=== PATIENT | female | born 1935 | race Caucasian/White ===

== ENCOUNTER 2017-04-24 14:04 | Inpatient (IN) ==
[2017-04-24] MEDS ORDERED: Temazepam 15 MG CAPSULE PO PRN (16:01)
[2017-04-24] MEDS: Pregabalin 50 MG CAPSULE PO SCH (21:14)
[2017-04-24] MEDS: *HR* LORazepam 0.5 MG TABLET PO PRN (21:14)
[2017-04-24] MEDS: *HR* OxyCODONE/APAP 5/325 TABLET PO PRN (21:15)
--- NOTE | 2017-04-24 22:20 | Internal Med History&Physical ---
Date of Encounter: 04/25/17 Time of Encounter: 22:20 Assessment and Plan (1) Left humeral fracture Current visit: Yes Status: Acute History of spiral fracture of distal third left humerus and subsequent ORIF per Dr. Barrett. She is here for therapies to regain her ADLs to hopefully return home. PT, OT, recreational therapy will all be evaluating the patient. Her incision appears to be appropriate. She is in a brace to limit her range of motion of the left upper extremity. Pain is under adequate control. She does have considerable swelling of the left hand but no skin breakdown and not unexpected at this point. Neurovascular intact. We will continue with Percocet every 4 hours when necessary pain Qualifiers: Encounter type: initial encounter Humerus Location: shaft Fracture type: closed Fracture morphology: unspecified fracture morphology Qualified Code(s ): S42.302A - Unspecified fracture of shaft of humerus, left arm, initial encounter for closed fracture (2) History of pelvic fracture Current visit: Yes Status: Chronic Her x-rays revealed healing right superior and inferior pubic ramus fractures. This is giving her considerable pain. She is not sure exactly when she sustained this injury and she is followed about 4 times in the past month. Currently it is giving her lots of pain when trying to stand and do transfers. She will be evaluated by the therapies (3) Idiopathic peripheral neuropathy Current visit: Yes Status: Chronic She has a chronic history of idiopathic peripheral neuropathy. She has seen neurologist Dr. Quispe and she is currently taking Lyrica 100 mg twice a day. She states this does not work for a well. She does relate however that when she was taking amitriptyline for the urinary symptoms this seemed to also help her peripheral neuropathy. That medication however is being held because of her history of four falling episodes since starting the medication. (4) Urinary frequency Current visit: Yes Status: Chronic Chronically has urinary frequency. She has been on Vesicare and Mirabegron not much improvement. Dr. Martinez added amitriptyline to see if this would help, she did not think it really made much difference. We will hold that medication for fear it may have contributed to her falling episodes since starting the medication. (5) Fall with significant injury Current visit: Yes Status: Acute She has had for falling episodes in the past month or so she has injured her ribs, her back, and x-rays reveal healing right pelvic fractures. At about the same time as starting the falling episodes she was started on amitriptyline for her bladder symptoms. That medication has been stopped in case it has contributed to that problem. She will undergo extensive therapies to help avoid recurring falls Qualifiers: Encounter type: initial encounter Qualified Code(s): W19.XXXA - Unspecified fall, initial encounter (6) Back pain Current visit: Yes Status: Acute She is having considerable low back pain and sacral pain. She had negative x- rays for fracture. This likely is contributed to her falling episodes. She has pain medication ordered and will have therapies. Qualifiers: Back pain location: low back pain Chronicity: acute Back pain laterality : midline Sciatica presence: without sciatica Qualified Code(s): M54.5 - Low back pain (7) HTN (hypertension) Current visit: Yes Status: Chronic Long-standing history of hypertension. Her pressures been under good control. We will continue her current medications. Qualifiers: Hypertension type: essential hypertension Qualified Code(s): I10 - Essential (primary) hypertension (8) Acute blood loss as cause of postoperative anemia Current visit: Yes Status: Acute Mild anemia as expected postoperatively. We will recheck her count soon. (9) DVT prophylaxis Current visit: Yes Status: Acute DVT prophylaxis with Lovenox will be continued. Internal Medicine - H&P: HPI Chief complaint: I am here for therapy following my left arm fracture Admitted From: Hospital to Hospital Transfer Plans for Post Hospital Care: Home History of present illness: Ms. Khan is a 81 year old female with known chronic history of hypertension, COPD, idiopathic peripheral neuropathy of lower extremities, urinary frequency who recently fell and sustained a spiral type fracture of the lower one third left humerus. She was transferred to our facility for rehabilitation from [facility] following ORIF of the fracture. States she was here usual self until she fell on 04/19/17 as she was attempting to get back into the car after she was at a DME store picking up new prescription shoes. She does not know why she fell. She had no loss of consciousness. No unilateral focal deficit area when she fell she hurt all over including her left arm and right lower extremity and back. She was taken by squad to [facility] was found to have a spiral type fracture of the distal one third of the left humerus that required ORIF by Dr. Barrett on the following day. During the multiple x-rays that were obtained they found a subacute right superior and inferior pubic ramus fracture that was healing and had callus formation. She relates that she has fallen 4 times in the past month or so sustaining back pain, rib pain, now hip pain in addition to the left humerus fracture. She notes she was started on amitriptyline at about the same time because of her ongoing bladder problems. She is having ongoing urinary frequency and is felt that that may help those symptoms. She also has peripheral neuropathy of lower extremities and it was helpful for the neuropathy. She was transferred to the rehabilitation unit for therapies so she can regain her ADLs prior to going home. She lives in a 1 floor home. Currently she states she cannot walk, she does not think she can stand. Her left upper extremity is in an immobilizer to keep her arm and elbow in place. She thinks her pain is been under good control. She states a lot of her pain is in the low back and sacral area. She had x-rays in that area negative for fracture. She states she has not been able to do more than stand with 2 person assistance to pivot and sit on a bedside commode. She has not had any syncopal symptoms, chest pain or palpitations, dyspnea, acute GI symptoms. She denies any unilateral symptoms suggesting CVA. Past Med Surg Social Fam HX - Past Medical History Medical history: COPD (Prior history of tobacco use for many years), GERD, hypertension, other (Chronic idiopathic peripheral neuropathy of both lower extremities. Urinary frequency) Psychiatric history: anxiety (She uses Ativan when necessary for anxiety.) - Past Surgical History Surgical History: orthopedic, other (Left humerus fracture with ORIF and plate fixation) - Social History Smoking Status: Former smoker Smokeless Tobacco Status: No Alcohol use: none Drug use: none Current living situation: Home Activity Level: Independent ambulation Recent Out of Country Travel Within the Last 8 Weeks: No Exposure or Possible Exposure to Illness During Travel: No Additional social history: He lives in a one-story home. She typically uses a walker for ambulation to help stability - Family History Mother Living Status: Cause of : Hemorrhagic stroke at age 57 Hx Family Cardiac Disorders: Yes (Hypertension) Hx Family Neurologic Disorders: Yes (External could age 57) Father Family Member Ethnicity: Non- Living Status: Age at : 72 Cause of : surgical complications Hx Family GI Disorders: Yes (Problems, bleeding ulcer) Brother Hx Family Cancer: Yes (One brother with esophageal cancer, brother with prostate cancer) Internal Medicine - H&P: Meds Loratadine [Allergy Relief] 10 mg PO DAILY 04/21/17 [History] Mirabegron [Myrbetriq] 50 mg PO DAILY 04/21/17 [History] Omeprazole [PriLOSEC] 20 mg PO DAILY 04/21/17 [History] Polyethylene Glycol 3350 [MiraLAX] 17 gm PO DAILY 04/21/17 [History] Potassium Chloride [Klor-Con 10] 10 meq PO DAILY 04/21/17 [History] Pravastatin Sodium [Pravachol] 40 mg PO QPM 04/21/17 [History] Pregabalin [Lyrica] 100 mg PO BID 04/21/17 [History] Solifenacin Succinate [Vesicare] 5 mg PO DAILY 04/21/17 [History] Docusate [Colace] 100 mg PO BID capsule 04/22/17 [Rx] LORazepam [Ativan] 0.5 mg PO DAILY PRN #10 tablet 04/22/17 [Rx] Oxycodone HCl/Acetaminophen [Percocet 5-325 mg Tablet] 1 each PO Q4HR PRN #20 tablet 04/22/17 [Rx] Temazepam [Restoril] 15 mg PO HS PRN capsule 04/22/17 [Rx] Enoxaparin [Lovenox] 40 mg SQ DAILY #7 syr 04/24/17 [Rx] 3 Allergy/AdvReac Type Severity Reaction Status Date / Time No Known Allergies Allergy Verified 04/21/17 11:15 - Constitutional Constitutional: no falls (She has fallen 4 times. She thinks related to starting amitriptyline.) - EENT Eyes: no blurry vision, no loss of vision Ears: no ear discharge, no ear pain Nose, mouth and throat: dry mouth, no sore throat - Cardiovascular Cardiovascular ROS IM: no chest pain, no dyspnea, no dyspnea on exertion, no irregular heart rhythm - Respiratory Respiratory: no dyspnea, no hemoptysis, no dyspnea on exertion, no chest congestion - Gastrointestinal Gastrointestinal: constipation (She has not had a bowel movement since surgery) , no abdominal pain, no diarrhea, no melena, no vomiting - Genitourinary Genitourinary: no urinary incontinence, no urinary urgency Menstruation: post menopausal - Musculoskeletal Musculoskeletal ROS IM: back pain (She complains of tailbone pain.), muscle weakness (She does not think she can walk because of weakness and instability), other (pain in left upper extremity status post ORIF humeral fracture) - Integumentary Integumentary IM: no erythema, no rash - Neurological Neurological ROS: frequent falls (She apparently has had 4 falls in the past few weeks.), other (She has a history of chronic neuropathy of lower extremities.) - Constitutional Vitals: Temp Pulse Resp BP Pulse Ox 97.6 F 96 18 149/74 95 04/24/17 19:00 04/24/17 19:00 04/24/17 19:00 04/24/17 19:00 04/24/17 19:00 General appearance: Present: A&O X 3, no acute distress, obese, answers questions appropriately - Head Head exam: Present: atraumatic, normal inspection, normocephalic - Eye Eye exam: Present: EOMI, PERRL - ENT ENT exam: Present: mucous membranes dry, TM's normal bilaterally - Neck Neck exam general surgery: Absent: lymphadenopathy, tenderness, thyromegaly - Respiratory Respiratory exam: Present: decreased breath sounds (Mildly diminished breath sounds but clear. This is her baseline.), CTAB. Absent: rhonchi, wheezes, tachypnea - Cardiovascular Cardiovascular exam: Present: RRR, +S1, +S2. Absent: systolic murmur - GI/Abdominal GI/Abdominal exam: Present: no peritoneal signs. Absent: mass, tenderness - Extremities Exam Additional comments: Left upper extremity is wrapped in cast padding and Frantz wraps. She has swelling of the dorsum of the left hand. She does have full function. Neurovascular intact. Cast padding was removed and shows incision to be clean and dry. Honeycomb dressing intact. Very tiny area of dried blood. No significant redness. No signs of infection. Lower extremities show pitting edema of both feet. Good dorsalis pedis pulses. No skin breakdown. - Neurological Exam Neurological exam: Present: oriented X3 Additional comments: I did not attempt to get her out of bed to check her gait or balance. She moves all extremities appropriately well in bed except for left arm in abductor device - Skin Additional comments: Incision looks clean and dry. Clinical and OpSite dressing intact. I see no skin breakdown elsewhere. Internal Med - H&P Results - Labs Labs: As were reviewed from her hospitalization at [facility] taken earlier today. Hemoglobin 8.6. Electrolytes and renal function unremarkable.
[2017-04-25] MEDS: *HR* OxyCODONE/APAP 5/325 TABLET PO PRN ×3 (06:23→19:15)
[2017-04-25] MEDS ORDERED: Loratadine 10 MG TABLET PO SCH (09:00)
[2017-04-25] MEDS: Pregabalin 50 MG CAPSULE PO SCH ×2 (09:26→21:00)
[2017-04-25] MEDS: *HR* Enoxaparin 40 MG/0.4 ML SYRINGE SQ SCH (09:28)
--- NOTE | 2017-04-25 19:03 | Internal Med Progress Note ---
Date of Encounter: 04/25/17 Time of Encounter: 18:46 - Assessment and plan (1) Left humeral fracture Current Visit: Yes Status: Acute Assessment and plan: History of left humerus fracture and ORIF. Pain is under good control. She is getting PT and OT therapies. She states she feels fairly comfortable. Qualifiers: Encounter type: initial encounter Humerus Location: shaft Fracture type: closed Fracture morphology: unspecified fracture morphology Qualified Code(s ): S42.302A - Unspecified fracture of shaft of humerus, left arm, initial encounter for closed fracture (2) History of pelvic fracture Current Visit: Yes Status: Chronic Assessment and plan: History of healing right pelvic fracture with callus formation. However she does have lots of hip and pelvic pain particularly on the right side when trying to ambulate lifting her left leg. Continue with therapies and pain medication (3) Back pain Current Visit: Yes Status: Acute Assessment and plan: Complaints of low back pain following the fall. No obvious fractures. Continue the therapies Qualifiers: Back pain location: low back pain Chronicity: acute Back pain laterality : midline Sciatica presence: without sciatica Qualified Code(s): M54.5 - Low back pain (4) Fall with significant injury Current Visit: Yes Status: Acute Assessment and plan: Recurring falling episodes in the past month. Therapy to hopefully regain some strength. Amitriptyline will be held. No obvious head trauma or CVA signs or symptoms. Continue to follow. Qualifiers: Encounter type: initial encounter Qualified Code(s): W19.XXXA - Unspecified fall, initial encounter (5) HTN (hypertension) Current Visit: Yes Status: Chronic Assessment and plan: hypertension under good control. Qualifiers: Hypertension type: essential hypertension Qualified Code(s): I10 - Essential (primary) hypertension (6) Idiopathic peripheral neuropathy Current Visit: Yes Status: Chronic Assessment and plan: Chronic peripheral neuropathy of lower extremities. She states that the Lyrica is only partially successful in controlling the pain. When she was on amitriptyline she thinks things were better, but it has been held because of possible association with her falling episodes. (7) Acute blood loss as cause of postoperative anemia Current Visit: Yes Status: Acute Assessment and plan: Appropriate amount of blood loss and anemia postoperatively. No obvious active bleeding currently. We will recheck her hemoglobin in the morning. (8) DVT prophylaxis Current Visit: Yes Status: Acute Assessment and plan: Continue with the Lovenox - Subjective Interval history: I saw her today after she had therapy. It was reported she was able to stand with 2 person assistance shuffle her feet slightly so she could sit in a chair or bedside commode. She is surprised that she was even able to stand. She states her right hip hurts when she lifts her left leg to walk. She thinks her pain medication, had only a couple Percocet today, is keeping things under adequate control. Tonight she is ready for another Percocet that she has pain at the top of the shoulder. She denies any respiratory symptoms. She denies any cardiac symptoms. She has not had a bowel movement since her surgery. Her left hand is still very puffy/ edematous. She does have function of the left hand. Today it was noted she had a triangle shaped reddened area on the palm side of her base of her thumb. No history of trauma for this. - Constitutional Vitals: Temp Pulse Resp BP Pulse Ox 97.9 F 96 16 141/86 94 04/25/17 07:39 04/25/17 07:39 04/25/17 07:39 04/25/17 07:39 04/25/17 11:20 General appearance: Present: A&O X 3, no acute distress (While seated in a wheelchair. Her arm is immobilized.), obese, answers questions appropriately - Respiratory Respiratory exam: Present: decreased breath sounds, CTAB - Cardiovascular Cardiovascular exam: Present: +S1, +S2. Absent: systolic murmur - Extremities Exam Additional comments: Upper extremity is in the immobilizer. Cast padding and Frantz wrap intact. I did not reevaluate the incision tonight. She does have significant swelling of the left hand, particularly the dorsal area. No skin breakdown but has a triangle shaped almost blood blister finding on the pad side of her proximal thumb. She is able to move her fingers and hand appropriately. Mild edema of the dorsum of both feet. Not particularly pitting into the ankles. Consult Discharge Plan - Plan Referrals: Jamin Villa MD [Primary Care Provider] -
[2017-04-25] MEDS: *HR* LORazepam 0.5 MG TABLET PO PRN (21:01)
[2017-04-26] MEDS: *HR* OxyCODONE/APAP 5/325 TABLET PO PRN ×4 (07:12→22:27)
--- NOTE | 2017-04-26 07:55 | Internal Med Progress Note ---
Date of Encounter: 04/26/17 Time of Encounter: 07:55 - Assessment and plan (1) Left humeral fracture Current Visit: Yes Status: Acute Assessment and plan: Status post left humerus fracture and ORIF. Her pain control is reasonably good. She is still very much handicapped because she cannot use her left upper extremity and she has pain in the right buttock and hip region which limits her walking ability. Pain medication appears to be adequate. Continue therapies. The edema in the left hand will likely go away, we will follow presently. Currently we do not have lymphedema therapist available Qualifiers: Encounter type: initial encounter Humerus Location: shaft Fracture type: closed Fracture morphology: unspecified fracture morphology Qualified Code(s ): S42.302A - Unspecified fracture of shaft of humerus, left arm, initial encounter for closed fracture (2) History of pelvic fracture Current Visit: Yes Status: Chronic Assessment and plan: Old pelvic fracture with callus formation in the superior and inferior ramus on the right side. No other obvious fracture noted. However she does have right buttock pain when trying to ambulate and lift her left lower extremity. A need to consider CT scan of the pelvis. Will follow currently. (3) Back pain Current Visit: Yes Status: Acute Assessment and plan: Not having so much back pain, mainly in the right buttock and hip region. See note above. Qualifiers: Back pain location: low back pain Chronicity: acute Back pain laterality : midline Sciatica presence: without sciatica Qualified Code(s): M54.5 - Low back pain (4) Fall with significant injury Current Visit: Yes Status: Acute Qualifiers: Encounter type: initial encounter Qualified Code(s): W19.XXXA - Unspecified fall, initial encounter (5) HTN (hypertension) Current Visit: Yes Status: Chronic Qualifiers: Hypertension type: essential hypertension Qualified Code(s): I10 - Essential (primary) hypertension (6) Idiopathic peripheral neuropathy Current Visit: Yes Status: Chronic (7) Acute blood loss as cause of postoperative anemia Current Visit: Yes Status: Acute Assessment and plan: Follow-up hemoglobin is stable. (8) DVT prophylaxis Current Visit: Yes Status: Acute - Subjective Interval history: I saw her in the tunnel mucker. She was at the breakfast table in a wheelchair. She said she slept well, she thinks she may have had a sleeping pill. She denies any cardiac or respiratory symptoms. She thinks the pain medication is adequate. - Constitutional Vitals: Temp Pulse Resp BP Pulse Ox 97.9 F 82 16 127/80 93 04/26/17 04:00 04/26/17 04:00 04/26/17 04:00 04/26/17 04:00 04/26/17 04:00 General appearance: Present: A&O X 3, no acute distress (While seated in a wheelchair. Her arm is immobilized.), answers questions appropriately - Respiratory Respiratory exam: Present: decreased breath sounds, CTAB - Cardiovascular Cardiovascular exam: Present: RRR, +S1, +S2. Absent: systolic murmur - Extremities Exam Additional comments: Left upper extremity is in the immobilizer. Her arm is wrapped. Her dorsum of the left hand is still very puffy but function is intact and it is warm. She has a triangle shaped burn or blister formation on the palmar surface of the proximal thumb without change. - Incison Comments: The incision site is clean and dry. The honeycomb-type dressing with op site is intact. There are a few dried blood areas which are stable. No skin breakdown noted in the arm. Internal Medicine: Result - Labs CBC & Chem 7: 04/26/17 04:30 Labs: Short CBC 04/26/17 Range/Units 04:30 Hgb 8.7 L (11.5-15.4) g/dL Follow-up hemoglobin has been reviewed at 8.7. Hemoglobin is stable postoperatively now. Consult Discharge Plan - Plan Referrals: Jamin Villa MD [Primary Care Provider] -
[2017-04-26] MEDS: *HR* Enoxaparin 40 MG/0.4 ML SYRINGE SQ SCH (08:54)
[2017-04-26] MEDS: Pregabalin 50 MG CAPSULE PO SCH ×2 (08:55→22:00)
[2017-04-27] MEDS: *HR* OxyCODONE/APAP 5/325 TABLET PO PRN ×5 (02:37→23:54)
[2017-04-27] MEDS: *HR* Enoxaparin 40 MG/0.4 ML SYRINGE SQ SCH (07:43)
[2017-04-27] MEDS: Pregabalin 50 MG CAPSULE PO SCH ×2 (07:44→23:53)
--- NOTE | 2017-04-27 08:35 | Internal Med Progress Note ---
Date of Encounter: 04/27/17 Time of Encounter: 08:30 - Assessment and plan (1) Acute blood loss as cause of postoperative anemia Current Visit: Yes Status: Acute Assessment and plan: Hgb stable as of yesterday. I do not anticipate any further drop. (2) Left humeral fracture Current Visit: Yes Status: Acute Assessment and plan: Pain well controlled. SHe reports she i unable to ambulate at this point, which she coud do before admission. Continue therapy. Her will be her primary comb winder at home. Qualifiers: Encounter type: initial encounter Humerus Location: shaft Fracture type: closed Fracture morphology: unspecified fracture morphology Qualified Code(s ): S42.302A - Unspecified fracture of shaft of humerus, left arm, initial encounter for closed fracture (3) HTN (hypertension) Current Visit: Yes Status: Chronic Assessment and plan: A little above goal, will follow. Qualifiers: Hypertension type: essential hypertension Qualified Code(s): I10 - Essential (primary) hypertension (4) History of pelvic fracture Current Visit: Yes Status: Chronic Assessment and plan: Consider CT to rule out occult fracture. - Time Spent With Patient 25 - 35 minutes - Subjective Interval history: patient tells me that overall she feels well. Has some pain in R hip as before, she states the pain medication is effective but she sleeps well at night. She says that she is unable to stand and walk but that it is not because of pain, she isn't sure why her legs feel weak. Denies chest pain or upper extremity pain. - Constitutional Vitals: Afebrile, O2 sats fine, BP 146-74/156/77. Temp Pulse Resp BP Pulse Ox 97.9 F 86 16 156/77 94 04/27/17 07:23 04/27/17 07:23 04/27/17 07:23 04/27/17 07:23 04/27/17 07:23 General appearance: Present: A&O X 3, pleasant, no acute distress (While seated in a wheelchair. Her left arm is immobilized.She smiles and does not appear to be experiencing pain. ), answers questions appropriately - Respiratory Respiratory exam: Present: CTAB. Absent: accessory muscle use, rales, respiratory distress, rhonchi, wheezes - Cardiovascular Cardiovascular exam: Present: RRR, +S1, +S2. Absent: diastolic murmur, gallop, rubs, systolic murmur - Extremities Exam Extremities exam: Present: warm. Absent: calf tenderness, cyanotic, pedal edema Additional comments: Edema of L hand, pitting, nontender. Moves fingers. Blister on L thumb, fluid in it seems to have resolved, skin is still intact. Legs have benita firm nonpitting edema, no redness, tenderness or skin breakdown. Able to move both legs dorsi and plantar flexion at ankles, able to elevate both legs. Internal Medicine: Result - Labs CBC & Chem 7: 04/26/17 04:30 Consult Discharge Plan - Plan Referrals: Jamin Villa MD [Primary Care Provider] -
[2017-04-28] MEDS: *HR* OxyCODONE/APAP 5/325 TABLET PO PRN ×3 (03:42→21:09)
[2017-04-28] MEDS: *HR* Enoxaparin 40 MG/0.4 ML SYRINGE SQ SCH (08:35)
[2017-04-28] MEDS: Pregabalin 50 MG CAPSULE PO SCH ×2 (08:35→21:09)
[2017-04-28] MEDS: Furosemide 40 MG TABLET PO SCH ×2 (10:30→16:28)
--- NOTE | 2017-04-28 16:42 | Internal Med Progress Note ---
Date of Encounter: 04/28/17 Time of Encounter: 06:55 - Assessment and plan (1) Acute blood loss as cause of postoperative anemia Current Visit: Yes Status: Acute Assessment and plan: No evidence for further bleeding. I don't think we have probably repeat this (2) Left humeral fracture Current Visit: Yes Status: Acute Assessment and plan: Upper extremity edema is gone down. Her pain is nicely controlled. Qualifiers: Encounter type: initial encounter Humerus Location: shaft Fracture type: closed Fracture morphology: unspecified fracture morphology Qualified Code(s ): S42.302A - Unspecified fracture of shaft of humerus, left arm, initial encounter for closed fracture (3) HTN (hypertension) Current Visit: Yes Status: Chronic Assessment and plan: At goal. Qualifiers: Hypertension type: essential hypertension Qualified Code(s): I10 - Essential (primary) hypertension (4) History of pelvic fracture Current Visit: Yes Status: Chronic Assessment and plan: On exam doesn't confirm any acute neurological deficit to explain why she's having difficulty ambulating. She could have a spinal cord lesion but again exam does not suggest that. Certainly she has a lot of fluid in her likes this is not usually presents try some diuresis and see if that can decrease the water weight in her legs and improve her ability to walk. She did ask for her Ativan to be resumed once a day and we did that. She is really not having much pain in her hip by her report so don't think she needs it right now. Her plain films were normal. - Time Spent With Patient Greater than 35 minutes - Subjective Interval history: The patient denies pain in the left upper extremity. She denies shortness of breath, chest pain or abdominal pain. She does say she still has trouble moving her legs when she attempts to stand. She states she has chronic neuropathy but usually doesn't have this much trouble. She feels the legs are somewhat heavy she does have a lot of extra fluid here. She continues to have right lateral hip pain but she denies pain in her back. - Constitutional Vitals: Vital signs are unremarkable. O2 sats are on room air. Temp Pulse Resp BP Pulse Ox 97.8 F 75 16 135/76 93 04/28/17 08:00 04/28/17 08:00 04/28/17 08:00 04/28/17 08:00 04/28/17 08:00 General appearance: Present: A&O X 3, pleasant, no acute distress (While seated in a wheelchair. Her left arm is immobilized.She smiles and does not appear to be experiencing pain. ), answers questions appropriately - Respiratory Respiratory exam: Present: CTAB. Absent: accessory muscle use, rales, rhonchi, wheezes - Cardiovascular Cardiovascular exam: Present: RRR, +S1, +S2. Absent: diastolic murmur, gallop, rubs, systolic murmur - GI/Abdominal GI/Abdominal exam: Present: normal bowel sounds, soft, no peritoneal signs. Absent: distended, tenderness - Extremities Exam Extremities exam: Present: normal inspection (Reflexes are brisk and symmetrical in his. Sensation is intact throughout the lower extremities by her report. She has reasonably good strength to the dorsal plantar flexion. She can lift both legs up off the bed. She can flex and extend both knees and flex at the hips. There is no tenderness over the lateral hip or the back.), pedal edema (She has prominent bilateral rales lower extremity pitting edema. Edema on her distal left upper extremity is much improved from yesterday though not completely resolved.), warm, radial pulses palpable and symmetrical. Absent: calf tenderness, cyanotic Internal Medicine: Result - Labs CBC & Chem 7: 04/26/17 04:30 Consult Discharge Plan - Plan Referrals: Jamin Villa MD [Primary Care Provider] -
[2017-04-29] MEDS: *HR* OxyCODONE/APAP 5/325 TABLET PO PRN ×4 (01:17→18:10)
[2017-04-29] MEDS: *HR* Enoxaparin 40 MG/0.4 ML SYRINGE SQ SCH (09:18)
[2017-04-29] MEDS: Pregabalin 50 MG CAPSULE PO SCH ×2 (09:19→20:42)
--- NOTE | 2017-04-29 12:54 | Internal Med Progress Note ---
Date of Encounter: 04/29/17 Time of Encounter: 12:45 - Assessment and plan (1) Acute blood loss as cause of postoperative anemia Current Visit: Yes Status: Acute Assessment and plan: I will recheck her CBC tomorrow. (2) Left humeral fracture Current Visit: Yes Status: Acute Assessment and plan: Doing well postop. Her left hand swelling has resolved. Pain is well-controlled. Qualifiers: Encounter type: initial encounter Humerus Location: shaft Fracture type: closed Fracture morphology: unspecified fracture morphology Qualified Code(s ): S42.302A - Unspecified fracture of shaft of humerus, left arm, initial encounter for closed fracture (3) HTN (hypertension) Current Visit: Yes Status: Chronic Assessment and plan: Overall she's been at goal. We will check electrolytes tomorrow. Qualifiers: Hypertension type: essential hypertension Qualified Code(s): I10 - Essential (primary) hypertension (4) History of pelvic fracture Current Visit: Yes Status: Chronic Assessment and plan: She is having persistent pain and functional disability. I'll get a CT of her right hip. We'll do this tomorrow. - Time Spent With Patient Greater than 35 minutes - Subjective Interval history: She denies abdominal discomfort or chest pain. She is not sure if she has less fluid in her legs but says she does not want any further diuretic because it is inconvenient for her to urinate frequently. She denies left upper extremity pain states she's having the swelling is gone from her hand. She says that with walking she still has trouble bearing weight. She feels it's because her legs are weak but also acknowledges that she has pain in the right hip tries to do that. I looked at physical therapy notes from 2 days ago they seem to suggested that pain with weightbearing as more of a problem than weakness. She again tells me that she's had neuropathy in the past and that "I get like this sometimes". - Constitutional Vitals: She has been afebrile. Other vitals are noted. The O2 sat is a little surprising but she is completely comfortable on room air when I'm talking to her. Repeat O2 sat done just now by the nurse is 95% on room air. Temp Pulse Resp BP Pulse Ox 97.9 F 88 16 135/93 86 04/29/17 08:39 04/29/17 08:39 04/28/17 19:26 04/29/17 08:39 04/29/17 08:39 General appearance: Present: A&O X 3, pleasant, no acute distress (While seated in a wheelchair. Her left arm is immobilized.She smiles and does not appear to be experiencing pain. ), answers questions appropriately - Respiratory Respiratory exam: Present: CTAB. Absent: accessory muscle use, rales, rhonchi, wheezes - Cardiovascular Cardiovascular exam: Present: RRR, +S1, +S2. Absent: diastolic murmur, gallop, rubs, systolic murmur - GI/Abdominal GI/Abdominal exam: Present: normal bowel sounds, soft, no peritoneal signs. Absent: distended, tenderness - Extremities Exam Extremities exam: Present: pedal edema (She still has prominent pitting bilateral pretibial edema but no calf tenderness and medial edema seems improved from yesterday. She is good vascular supply distally in the left upper extremity and the swelling has resolved.), warm. Absent: calf tenderness, cyanotic - Neurological Exam Neurological exam: Present: alert, no focal deficits (She can demonstrates good strength at the ankles and knees. She appears in no discomfort at rest. Reflexes are normal in the lower extremities.), strengths equal and symetr throughout. Absent: pronater drift, facial droop, speech deficit Internal Medicine: Result - Labs CBC & Chem 7: 04/26/17 04:30 Consult Discharge Plan - Plan Referrals: Jamin Villa MD [Primary Care Provider] -
[2017-04-29 13:07] LABS: Bilirubin,Urine Negative (Negative); Blood,Urine Trace-intact (Negative); Clarity,Urine Cloudy (Clear); Color,Urine Yellow (Yellow); Glucose,Urine (UA) Normal (Normal); Ketones,Urine Negative (Negative); Leukocyte Esterase,Urine Moderate (Negative); Nitrite,Urine Positive (Negative); Protein,Urine Trace mg/dL (Neg-Trace); Urobilinogen,Urine Normal (Normal)
[2017-04-29 13:16] LABS: Bacteria,Urine Many per hpf (None-Few); RBC,Urine 0-3 per hpf (0-3); Squamous Epithelial Cell,Urine Many per lpf (None-Few); WBC,Urine 50-100 per hpf (0-3)
[2017-04-30] MEDS: *HR* OxyCODONE/APAP 5/325 TABLET PO PRN ×4 (01:03→13:53)
[2017-04-30 05:15] LABS: Hematocrit 28.2 % (35.3-44.9); Hemoglobin 9.2 g/dL (11.5-15.4); Mean Corpuscular HGB Conc 32.6 g/dL (31.6-35.5); Mean Corpuscular Hemoglobin 32.5 pg (28.0-33.3); Mean Corpuscular Volume 99.6 fL (83.0-100.0); Mean Platelet Volume 9.7 fL (9.4-12.4); Platelet Count 183 K/mcL (140-400); Red Blood Count 2.83 M/mcL (3.82-4.97); Red Cell Distribution Width 15.7 % (11.5-14.5)
[2017-04-30 05:30] LABS: BUN/Creatinine Ratio 22 (6-26); Blood Urea Nitrogen 16 mg/dL (7-20); Calcium 9.6 mg/dL (8.6-10.8); Carbon Dioxide 29 mEq/L (19-29); Chloride 102 mEq/L (98-109); Glucose 113 mg/dL (70-99); Osmolality,Calculated 292 (280-300); Potassium 3.7 mEq/L (3.5-4.5); Sodium 140 mEq/L (136-145); eGFR For African Americans > 60 (> 60); eGFR For Non-African Americans > 60 (> 60)
[2017-04-30] MEDS: *HR* Enoxaparin 40 MG/0.4 ML SYRINGE SQ SCH (08:39)
[2017-04-30] MEDS: Pregabalin 50 MG CAPSULE PO SCH ×2 (08:39→21:34)
[2017-04-30] MEDS ORDERED: *HR* LORazepam 0.5 MG TABLET PO PRN (13:39)
--- NOTE | 2017-04-30 13:49 | Internal Med Progress Note ---
Date of Encounter: 04/30/17 Time of Encounter: 13:23 - Assessment and plan (1) Left humeral fracture Current Visit: Yes Status: Acute Assessment and plan: Left humeral fracture and getting PT and OT. Her pain control is fairly good. The swelling in the left hand is gone. The biggest problem is pain in the right groin and hip area when she tries to ambulate. The therapist states she is able to do a lot of her hygiene care. She needs help with her top part because of the shoulder splint. Ambulation is a problem. Continue with PT and OT. Qualifiers: Encounter type: initial encounter Humerus Location: shaft Fracture type: closed Fracture morphology: unspecified fracture morphology Qualified Code(s ): S42.302A - Unspecified fracture of shaft of humerus, left arm, initial encounter for closed fracture (2) History of pelvic fracture Current Visit: Yes Status: Acute Assessment and plan: Fracture of the pubic ramus on the right side superior and inferior portions. This appears to be more recent than remote and this is likely the source of her pain when she tries to ambulate and bear weight on that side. We will make the pain medication scheduled every 4 hours. Continue PT and OT. (3) GERD (gastroesophageal reflux disease) Current Visit: Yes Status: Acute Assessment and plan: She has a history of GERD and takes omeprazole long-term. She now states that she is not very hungry as she becomes nauseated and has reflux symptoms clear up to the back of her throat even with the sight of food. We will continue PPI and will add liquid and acid when necessary. No other red flags currently. Qualifiers: Esophagitis presence: esophagitis presence not specified Qualified Code(s) : K21.9 - Gastro-esophageal reflux disease without esophagitis (4) Urinary tract infection Current Visit: Yes Status: Acute Assessment and plan: She is a history of recurring urinary tract infections and frequency and incontinence issues in the past and sees Dr. Martinez. Urine culture showing Escherichia coli with sensitivities pending. We will start Macrodantin while waiting for sensitivities to come back. The nurses report that she is having foul-smelling urine and irritation in that area Qualifiers: Urinary tract infection type: acute cystitis Hematuria presence: without hematuria Qualified Code(s): N30.00 - Acute cystitis without hematuria (5) Back pain Current Visit: Yes Status: Acute Assessment and plan: When she stands for long periods of time she has some back pain but this is not new for her. Analgesia on a scheduled basis. Qualifiers: Back pain location: low back pain Chronicity: acute Back pain laterality : midline Sciatica presence: without sciatica Qualified Code(s): M54.5 - Low back pain (6) Fall with significant injury Current Visit: Yes Status: Acute Qualifiers: Encounter type: initial encounter Qualified Code(s): W19.XXXA - Unspecified fall, initial encounter (7) HTN (hypertension) Current Visit: Yes Status: Chronic Assessment and plan: Blood pressure is under good control. Qualifiers: Hypertension type: essential hypertension Qualified Code(s): I10 - Essential (primary) hypertension (8) Idiopathic peripheral neuropathy Current Visit: Yes Status: Chronic (9) Acute blood loss as cause of postoperative anemia Current Visit: Yes Status: Acute Assessment and plan: Her hemoglobin is actually going back up and is in the 9 range now. (10) DVT prophylaxis Current Visit: Yes Status: Acute - Subjective Interval history: Patient states that the pain in the right hip and pelvis area is worse now than when she came in when she is trying to ambulate. She denies any cardiac symptoms. She denies any pulmonary symptoms. However, she states she gets nauseated easily and has poor appetite. Before a meal she actually has reflux type symptoms. Her bowels are moving appropriately. She states the pain medication is helpful, and she states she is asking for more often. We talked about when necessary versus scheduled analgesia. Physical therapy states that she is having lots of troubles with ambulation. Difficult to lift the left leg to walk because it gives her tremendous pain in the right pelvic and hip area from her known fracture. They are making some progress but slowly. Therapist states patient may need to spend a lot of time in the wheelchair recuperating. - Constitutional Vitals: Temp Pulse Resp BP Pulse Ox 98.0 F 78 16 126/62 93 04/30/17 07:26 04/30/17 07:26 04/30/17 07:26 04/30/17 07:26 04/30/17 07:26 General appearance: Present: A&O X 3, pleasant, no acute distress, answers questions appropriately Exam: She is standing at the table in the therapy room without problems. Otherwise she is in a wheelchair. - Respiratory Additional comments: Diminished breath sounds but clear. - Cardiovascular Cardiovascular exam: Present: RRR, +S1, +S2. Absent: systolic murmur - GI/Abdominal GI/Abdominal exam: Present: soft. Absent: tenderness - Extremities Exam Additional comments: Mild edema of the lower extremities, not particularly pitting. No redness. No calf tenderness. Left hand is no longer swollen. Left upper extremity is wrapped and in the splint device Internal Medicine: Result - Labs CBC & Chem 7: 04/30/17 05:00 04/30/17 05:00 Labs: Short CBC 04/30/17 Range/Units 05:00 WBC 6.9 D (4.3-11.1) K/mcL Hgb 9.2 L (11.5-15.4) g/dL Hct 28.2 L (35.3-44.9) % Plt Count 183 (140-400) K/mcL BMP 04/30/17 05:00 Sodium 140 Potassium 3.7 Chloride 102 Carbon Dioxide 29 BUN 16 Creatinine 0.74 Glucose 113 H Calcium 9.6 Hemoglobin is actually improved. Glucose minimally elevated. Overall doing well. - Impressions Impressions Hip CT 04/29/17 13:11 IMPRESSION: 1. Mildly comminuted fractures of the right superior and inferior pubic rami and right sacral ala with no evidence for osseous bridging or significant callus formation at this time. 2. Osteopenia. 3. Moderate osteoarthritis of the bilateral hips. D/ / Devan Laureano MD / Devan Laureano MD Interpreting Provider: Devan Laureano MD - Diagnostic Studies CT scan - pelvis Additional comments: CT scan of the pelvis shows the superior and inferior pubic ramus fractures without callus and the superior one is comminuted. There is a small fracture on the alar area of the ileum. Previous radiographs were consistent with healing/callused pelvic fractures were thought to be old Consult Discharge Plan - Plan Referrals: Jamin Villa MD [Primary Care Provider] -
[2017-04-30] MEDS: Nitrofurantoin (BID) 100 MG CAPSULE PO SCH ×2 (15:11→21:34)
[2017-04-30] MEDS: Mag Hydrox/Al Hydrox/Simeth 30 ML UDC PO PRN (15:11)
[2017-04-30] MEDS: *HR* OxyCODONE/APAP 5/325 TABLET PO SCH ×2 (17:26→21:34)
[2017-05-01] MEDS: *HR* OxyCODONE/APAP 5/325 TABLET PO SCH ×6 (01:06→21:15)
[2017-05-01] MEDS: Nitrofurantoin (BID) 100 MG CAPSULE PO SCH (08:00)
[2017-05-01] MEDS: Mag Hydrox/Al Hydrox/Simeth 30 ML UDC PO PRN ×2 (08:00→17:21)
[2017-05-01] MEDS: Pregabalin 50 MG CAPSULE PO SCH ×2 (08:00→21:15)
[2017-05-01] MEDS: *HR* Enoxaparin 40 MG/0.4 ML SYRINGE SQ SCH (08:01)
[2017-05-01] MEDS ORDERED: Ertapenem 1,000 MG in 0.9 % Sodium Chloride Mini Bag 100 ML IVPB SCH (09:00)
--- NOTE | 2017-05-01 09:04 | Internal Med Progress Note ---
Date of Encounter: 05/01/17 Time of Encounter: 09:02 - Assessment and plan (1) Left humeral fracture Current Visit: Yes Status: Acute Assessment and plan: Continue with therapy regarding her left humeral fracture. Qualifiers: Encounter type: initial encounter Humerus Location: shaft Fracture type: closed Fracture morphology: unspecified fracture morphology Qualified Code(s ): S42.302A - Unspecified fracture of shaft of humerus, left arm, initial encounter for closed fracture (2) History of pelvic fracture Current Visit: Yes Status: Acute Assessment and plan: Continue therapy cautiously due to the pelvic fracture. Pain medication is helpful but still having difficulty with her gait. (3) GERD (gastroesophageal reflux disease) Current Visit: Yes Status: Acute Assessment and plan: She feels better having started the liquid antacid in addition to her PPI. She ate better last night. Qualifiers: Esophagitis presence: esophagitis presence not specified Qualified Code(s) : K21.9 - Gastro-esophageal reflux disease without esophagitis (4) Urinary tract infection Current Visit: Yes Status: Acute Assessment and plan: Urine culture shows multidrug resistant Escherichia coli. It is sensitive to ertapenem and that will be initiated. I will be in contact via [employer] message to Dr. Martinez to keep him in the loop and his advice Qualifiers: Urinary tract infection type: acute cystitis Hematuria presence: without hematuria Qualified Code(s): N30.00 - Acute cystitis without hematuria (5) Back pain Current Visit: Yes Status: Acute Qualifiers: Back pain location: low back pain Chronicity: acute Back pain laterality : midline Sciatica presence: without sciatica Qualified Code(s): M54.5 - Low back pain (6) Fall with significant injury Current Visit: Yes Status: Acute Qualifiers: Encounter type: initial encounter Qualified Code(s): W19.XXXA - Unspecified fall, initial encounter (7) HTN (hypertension) Current Visit: Yes Status: Chronic Assessment and plan: Blood pressure is under good control. Qualifiers: Hypertension type: essential hypertension Qualified Code(s): I10 - Essential (primary) hypertension (8) Idiopathic peripheral neuropathy Current Visit: Yes Status: Chronic (9) Acute blood loss as cause of postoperative anemia Current Visit: Yes Status: Acute (10) DVT prophylaxis Current Visit: Yes Status: Acute - Subjective Interval history: I made a brief visit to see the patient in the physical therapy room. She says she feels better. While using the antacid she has a better appetite and ate better supper last night. She rested well. The pain medication as offered every 4 hours is giving her adequate pain control. She has no cardiac or pulmonary or GI symptoms currently. No urinary symptoms. I did explain to her though that her urine culture showed multidrug resistant Escherichia coli and she will have to also be in contact isolation. She is not having any urinary symptoms, the nurses reported foul-smelling urine, someone had ordered a urine culture in my absence. - Constitutional Vitals: Temp Pulse Resp BP Pulse Ox 97.7 F 76 16 131/75 90 04/30/17 19:20 04/30/17 19:20 04/30/17 19:20 04/30/17 19:20 04/30/17 19:20 General appearance: Present: A&O X 3, pleasant, no acute distress, answers questions appropriately Exam: I briefly saw the patient while she was standing at the parallel bars in the physical therapy room. I did not do a formal examination otherwise. Internal Medicine: Result - Labs CBC & Chem 7: 04/30/17 05:00 04/30/17 05:00 Labs: I reviewed the lab culture which showed multidrug resistant Escherichia coli and the sensitivities. - VTE Documentation of Mechanical Device: Graduated compression elastic hosiery Consult Discharge Plan - Plan Referrals: Jamin Villa MD [Primary Care Provider] -
[2017-05-01] MEDS: Ertapenem 1,000 MG in Water for inj. (sterile) 10 ML IVP SCH (14:28)
[2017-05-02] MEDS: *HR* OxyCODONE/APAP 5/325 TABLET PO SCH ×6 (00:15→19:39)
[2017-05-02] MEDS: Mag Hydrox/Al Hydrox/Simeth 30 ML UDC PO PRN ×3 (08:37→16:58)
[2017-05-02] MEDS: Pregabalin 50 MG CAPSULE PO SCH ×2 (08:38→19:39)
[2017-05-02] MEDS: *HR* Enoxaparin 40 MG/0.4 ML SYRINGE SQ SCH (08:39)
[2017-05-02] MEDS: Ertapenem 1,000 MG in Water for inj. (sterile) 10 ML IVP SCH (08:53)
--- NOTE | 2017-05-02 12:37 | Internal Med Progress Note ---
Date of Encounter: 05/02/17 Time of Encounter: 12:33 - Assessment and plan (1) Left humeral fracture Current Visit: Yes Status: Acute Assessment and plan: Continues with therapy regarding her left humeral fracture. Pain control is appropriate. She feels like she is advancing. Continue therapies. Qualifiers: Encounter type: initial encounter Humerus Location: shaft Fracture type: closed Fracture morphology: unspecified fracture morphology Qualified Code(s ): S42.302A - Unspecified fracture of shaft of humerus, left arm, initial encounter for closed fracture (2) History of pelvic fracture Current Visit: Yes Status: Acute Assessment and plan: She thinks the pain medication is adequate. She is frustrated because she cannot do much with her left lower extremity because of the pain and right pelvic fracture area. She thinks she is advancing. Nurse agrees. (3) GERD (gastroesophageal reflux disease) Current Visit: Yes Status: Acute Assessment and plan: She continues to having GERD type symptoms, interestingly this seems to occur just prior to eating and during her meal. We thought the liquid antacid was helpful, now she is not sure. If anything, she thinks the anti-anxiety medication is helpful. She has no cardiac symptoms with this. No symptoms of this when she is exerting herself during therapies. I will check her liver functions area we will plan CT scan of the abdomen. Treat symptomatically with Zofran. Qualifiers: Esophagitis presence: esophagitis presence not specified Qualified Code(s) : K21.9 - Gastro-esophageal reflux disease without esophagitis (4) Urinary tract infection Current Visit: Yes Status: Inactive Assessment and plan: Upon further review regarding the urinary tract infection, she was not having fever or new urinary symptoms. I believe the urine was gotten because of "foul- smelling urine". Urine sample showed many epithelial cells and should not of been cultured based on recent protocol. Culture however showed multidrug resistant Escherichia coli less than 100,000 colonies. Does not meet criteria for nosocomial infection. I discussed with urology as well as infection disease imaging system administrator and all agree that this is likely just colonization and not true infection. We will discontinue the antibiotic. Qualifiers: Urinary tract infection type: acute cystitis Hematuria presence: without hematuria Qualified Code(s): N30.00 - Acute cystitis without hematuria (5) Back pain Current Visit: Yes Status: Acute Qualifiers: Back pain location: low back pain Chronicity: acute Back pain laterality : midline Sciatica presence: without sciatica Qualified Code(s): M54.5 - Low back pain (6) Fall with significant injury Current Visit: Yes Status: Acute Qualifiers: Encounter type: initial encounter Qualified Code(s): W19.XXXA - Unspecified fall, initial encounter (7) HTN (hypertension) Current Visit: Yes Status: Chronic Qualifiers: Hypertension type: essential hypertension Qualified Code(s): I10 - Essential (primary) hypertension (8) Idiopathic peripheral neuropathy Current Visit: Yes Status: Chronic (9) Acute blood loss as cause of postoperative anemia Current Visit: Yes Status: Acute (10) DVT prophylaxis Current Visit: Yes Status: Acute - Subjective Interval history: Patient states that she just does not feel well. Specifically, just prior to eating a meal, she will have reflux symptoms of "burning" that comes up into the back of her throat. She also belches and now feels better. She thought that taking antacid was helpful but she is not sure today. She only had a few bites of lunch. No vomiting, but she did have some nausea earlier. Her bowels are moving approximately. No abdominal pain. No exertional cardiac type chest pain, no diaphoresis, no dyspnea. Timing seems to be localizing just prior to and during her meals. She thinks her nerve pill has been helpful and wants to increase to twice a day with this. She thinks she is getting stronger she states therapy thinks she is improving. She states the Percocet is giving her adequate pain control. She is not having any new urinary symptoms. Chronically she has frequency, occasional incontinence but this is her "normal". Prior to getting the urine test and culture a few days ago, she did not have fever, chills, CVA pain, dysuria, hematuria or other acute urinary changes. - Constitutional Vitals: Temp Pulse Resp BP Pulse Ox 65.2 F L 82 16 126/69 90 05/02/17 08:48 05/02/17 08:48 05/02/17 08:48 05/02/17 08:48 05/02/17 08:48 General appearance: Present: A&O X 3, pleasant, no acute distress, answers questions appropriately Exam: She is sitting in the wheelchair in the dining room. She does not appear to be toxic or ill. - Respiratory Respiratory exam: Present: CTAB. Absent: respiratory distress - Cardiovascular Cardiovascular exam: Present: RRR, +S1, +S2, systolic murmur (1/6 systolic murmur) - GI/Abdominal GI/Abdominal exam: Present: soft, no peritoneal signs. Absent: distended, guarding, mass, tenderness - Extremities Exam Additional comments: Lower extremities are in elastic stockings, they are still edematous. Left arm is in the postop shoulder device. No swelling in the hand. Internal Medicine: Result - Labs CBC & Chem 7: 04/30/17 05:00 04/30/17 05:00 Labs: Previous lab work was reviewed. I am going to order laboratory done today. - VTE Documentation of Mechanical Device: Graduated compression elastic hosiery Consult Discharge Plan - Plan Referrals: Jamin Villa MD [Primary Care Provider] -
[2017-05-02] MEDS: *HR* LORazepam 0.5 MG TABLET PO PRN ×2 (13:15→19:39)
[2017-05-02 13:53] LABS: Basophils % 0.3 %; Eosinophils # 0.2 K/mcL (0.0-0.6); Eosinophils % 2.2 %; Hematocrit 31.5 % (35.3-44.9); Hemoglobin 10.2 g/dL (11.5-15.4); Immature Granulocytes % 1.1 % (0-4); Lymphocytes # 1.3 K/mcL (0.6-4.6); Lymphocytes % 17.3 %; Mean Corpuscular HGB Conc 32.4 g/dL (31.6-35.5); Mean Corpuscular Hemoglobin 32.7 pg (28.0-33.3); Mean Platelet Volume 9.5 fL (9.4-12.4); Monocytes # 0.3 K/mcL (0.0-1.3); Monocytes % 4.4 %; Neutrophils # 5.4 K/mcL (1.6-8.9); Platelet Count 220 K/mcL (140-400); Red Blood Count 3.12 M/mcL (3.82-4.97); Red Cell Distribution Width 16.5 % (11.5-14.5); Segmented Neutrophils % 74.7 %
[2017-05-02 14:06] LABS: Alanine Aminotransferase 21 Units/L (0-55); Albumin 3.1 g/dL (3.5-5.0); Alkaline Phosphatase 123 Units/L (38-126); Aspartate Amino Transferase 25 Units/L (5-34); BUN/Creatinine Ratio 17 (6-26); Bilirubin,Total 0.9 mg/dL (0.2-1.2); Blood Urea Nitrogen 13 mg/dL (7-20); Calcium 9.9 mg/dL (8.6-10.8); Carbon Dioxide 27 mEq/L (19-29); Chloride 101 mEq/L (98-109); Glucose 101 mg/dL (70-99); Osmolality,Calculated 286 (280-300); Potassium 3.9 mEq/L (3.5-4.5); Sodium 138 mEq/L (136-145); Total Protein 6.1 g/dL (6.0-8.3); eGFR For African Americans > 60 (> 60); eGFR For Non-African Americans > 60 (> 60)
[2017-05-02] MEDS: Ondansetron ODT 4 MG TAB.RAPDIS SL PRN (16:58)
[2017-05-03] MEDS: *HR* OxyCODONE/APAP 5/325 TABLET PO SCH ×6 (03:32→21:02)
--- NOTE | 2017-05-03 06:53 | Internal Med Progress Note ---
Date of Encounter: 05/03/17 Time of Encounter: 19:18 - Assessment and plan (1) Left humeral fracture Current Visit: Yes Status: Acute Assessment and plan: She continues with physical and occupational therapy regarding the left humerus fracture. Pain is under adequate control. The swelling in the hand is resolved. Qualifiers: Encounter type: initial encounter Humerus Location: shaft Fracture type: closed Fracture morphology: unspecified fracture morphology Qualified Code(s ): S42.302A - Unspecified fracture of shaft of humerus, left arm, initial encounter for closed fracture (2) History of pelvic fracture Current Visit: Yes Status: Acute Assessment and plan: Still bothersome regarding the right pelvic fracture. This limits her walking ability, particularly ambulating with the left lower extremity. She states the pain medication is adequate. (3) GERD (gastroesophageal reflux disease) Current Visit: Yes Status: Acute Assessment and plan: She thinks she is getting better in this regard. Zofran is helpful. CAT scan was reviewed and reassuring. Qualifiers: Esophagitis presence: esophagitis presence not specified Qualified Code(s) : K21.9 - Gastro-esophageal reflux disease without esophagitis (4) Urinary tract infection Current Visit: Yes Status: Inactive Assessment and plan: no acute urinary symptoms currently Qualifiers: Urinary tract infection type: acute cystitis Hematuria presence: without hematuria Qualified Code(s): N30.00 - Acute cystitis without hematuria (5) Back pain Current Visit: Yes Status: Acute Qualifiers: Back pain location: low back pain Chronicity: acute Back pain laterality : midline Sciatica presence: without sciatica Qualified Code(s): M54.5 - Low back pain (6) Fall with significant injury Current Visit: Yes Status: Acute Qualifiers: Encounter type: initial encounter Qualified Code(s): W19.XXXA - Unspecified fall, initial encounter (7) HTN (hypertension) Current Visit: Yes Status: Chronic Assessment and plan: Controlled. Qualifiers: Hypertension type: essential hypertension Qualified Code(s): I10 - Essential (primary) hypertension (8) Idiopathic peripheral neuropathy Current Visit: Yes Status: Chronic (9) Acute blood loss as cause of postoperative anemia Current Visit: Yes Status: Acute Assessment and plan: Hemoglobin is actually improving. No obvious hemorrhaging noted. (10) DVT prophylaxis Current Visit: Yes Status: Acute - Subjective Interval history: She is eating a bit better, but not great yet. She denies any cardiac or respiratory symptoms. Her oxygen saturation dropped a bit tonight so they placed back on oxygen. She thinks the pain medication is helpful. She states she still cannot use her left lower extremity because of pain in her right groin and hip area. She is not sure if she is advancing or not, she says that physical therapy thinks that she is advancing. Bowels are moving well. Pain is under control adequately. No side effects with the analgesia noted - Constitutional Vitals: Temp Pulse Resp BP Pulse Ox 98.3 F 80 18 129/57 94 05/02/17 19:24 05/02/17 19:24 05/02/17 19:24 05/02/17 19:24 05/02/17 19:24 General appearance: Present: A&O X 3, pleasant, no acute distress, answers questions appropriately - Respiratory Respiratory exam: Present: CTAB - Cardiovascular Cardiovascular exam: Present: RRR, +S1, +S2 - GI/Abdominal GI/Abdominal exam: Present: soft. Absent: tenderness - Extremities Exam Additional comments: Left upper extremity in the shoulder splint. No swelling in the hand any longer. Lower extremities show mild puffiness, in the elastic stockings, no calf tenderness. Internal Medicine: Result - Labs CBC & Chem 7: 05/02/17 13:34 05/02/17 13:34 Labs: Short CBC 05/02/17 Range/Units 13:34 WBC 7.2 (4.3-11.1) K/mcL Hgb 10.2 L (11.5-15.4) g/dL Hct 31.5 L (35.3-44.9) % Plt Count 220 (140-400) K/mcL Neutrophils # 5.4 (1.6-8.9) K/mcL BMP 05/02/17 13:34 Sodium 138 Potassium 3.9 Chloride 101 Carbon Dioxide 27 BUN 13 Creatinine 0.76 Glucose 101 H Calcium 9.9 Liver Function 05/02/17 Range/Units 13:34 Total Bilirubin 0.9 (0.2-1.2) mg/dL AST 25 (5-34) Units/L ALT 21 (0-55) Units/L Alkaline Phosphatase 123 (38-126) Units/L Albumin 3.1 L (3.5-5.0) g/dL Labs from yesterday have been reviewed. They appear reassuring. The liver functions are reassuring. - Impressions Impressions Abdomen/Pelvis CT 05/02/17 13:03 IMPRESSION: 1. Large hiatal hernia similar to prior. 2. A 3.5 cm left adnexal cystic mass most likely of ovarian origin. Pelvic ultrasound recommended for further characterization. D/ / Valerio Song MD / Valerio Song MD Interpreting Provider: Valerio Song MD - Diagnostic Studies CT scan - abdomen Additional comments: The CAT scan showed a large hiatal hernia and left ovarian cyst. No obvious etiology for her reflux and nausea and anorexia. Overall reassuring. - VTE Documentation of Mechanical Device: Graduated compression elastic hosiery Consult Discharge Plan - Plan Referrals: Jamin Villa MD [Primary Care Provider] -
[2017-05-03] MEDS: Pregabalin 50 MG CAPSULE PO SCH ×2 (08:08→20:59)
[2017-05-03] MEDS: Ondansetron ODT 4 MG TAB.RAPDIS SL PRN ×3 (08:08→17:18)
[2017-05-03] MEDS: *HR* Enoxaparin 40 MG/0.4 ML SYRINGE SQ SCH (08:09)
[2017-05-04] MEDS: *HR* OxyCODONE/APAP 5/325 TABLET PO SCH ×6 (01:05→20:10)
[2017-05-04] MEDS: Pregabalin 50 MG CAPSULE PO SCH ×2 (07:55→20:11)
[2017-05-04] MEDS: *HR* Enoxaparin 40 MG/0.4 ML SYRINGE SQ SCH (07:57)
[2017-05-04] MEDS: Ondansetron ODT 4 MG TAB.RAPDIS SL PRN (08:08)
--- NOTE | 2017-05-04 14:08 | Internal Med Progress Note ---
Date of Encounter: 05/04/17 Time of Encounter: 14:02 - Assessment and plan (1) Left humeral fracture Current Visit: Yes Status: Acute Assessment and plan: She is tolerating her shoulder brace well. No swelling of the hand. Pain is under control. Qualifiers: Encounter type: initial encounter Humerus Location: shaft Fracture type: closed Fracture morphology: unspecified fracture morphology Qualified Code(s ): S42.302A - Unspecified fracture of shaft of humerus, left arm, initial encounter for closed fracture (2) History of pelvic fracture Current Visit: Yes Status: Acute Assessment and plan: Continued right pelvic pain, particularly when she is bearing weight and trying to walk lifting her left leg. Continue with her therapies. (3) GERD (gastroesophageal reflux disease) Current Visit: Yes Status: Acute Assessment and plan: Her symptoms of reflux and nausea are much improved with Zofran. We will change the order so it is before meals Qualifiers: Esophagitis presence: esophagitis presence not specified Qualified Code(s) : K21.9 - Gastro-esophageal reflux disease without esophagitis (4) Back pain Current Visit: Yes Status: Acute Qualifiers: Back pain location: low back pain Chronicity: acute Back pain laterality : midline Sciatica presence: without sciatica Qualified Code(s): M54.5 - Low back pain (5) Fall with significant injury Current Visit: Yes Status: Acute Qualifiers: Encounter type: initial encounter Qualified Code(s): W19.XXXA - Unspecified fall, initial encounter (6) HTN (hypertension) Current Visit: Yes Status: Chronic Assessment and plan: Blood pressure is under adequate control. Qualifiers: Hypertension type: essential hypertension Qualified Code(s): I10 - Essential (primary) hypertension (7) Idiopathic peripheral neuropathy Current Visit: Yes Status: Chronic (8) Acute blood loss as cause of postoperative anemia Current Visit: Yes Status: Acute Assessment and plan: Hemoglobin has been stable if not slightly increased. (9) DVT prophylaxis Current Visit: Yes Status: Acute - Subjective Interval history: Patient states that she feels better today. She tolerates her meals if she gets her Zofran before the meal. She denies any cardiac or respiratory symptoms. Her pain is under good control except for when she walks. She states her left lower leg is difficult to use when she is trying to walk because of the pelvic fracture on the right side. She feels like she is improving though. No acute urinary symptoms. - Constitutional Vitals: Temp Pulse Resp BP Pulse Ox 97.7 F 80 18 118/69 94 05/04/17 08:00 05/04/17 08:00 05/04/17 08:00 05/04/17 08:00 05/04/17 08:00 General appearance: Present: A&O X 3, pleasant, no acute distress, answers questions appropriately - Respiratory Respiratory exam: Present: CTAB - Cardiovascular Cardiovascular exam: Present: RRR, +S1, +S2. Absent: systolic murmur - GI/Abdominal GI/Abdominal exam: Present: soft. Absent: tenderness - Extremities Exam Extremities exam: Present: pedal edema (Mild edema of lower extremities, she is wearing her elastic stockings.). Absent: calf tenderness Additional comments: She is able to raise her left lower extremity while in the bed without difficulty. Muscle strength appears to be intact. Internal Medicine: Result - Labs CBC & Chem 7: 05/02/17 13:34 05/02/17 13:34 - VTE Documentation of Mechanical Device: Graduated compression elastic hosiery Consult Discharge Plan - Plan Referrals: Jamin Villa MD [Primary Care Provider] -
[2017-05-04] MEDS: Ondansetron ODT 4 MG TAB.RAPDIS SL SCH (16:36)
[2017-05-05] MEDS: *HR* OxyCODONE/APAP 5/325 TABLET PO SCH ×5 (00:06→17:27)
[2017-05-05] MEDS: Pregabalin 50 MG CAPSULE PO SCH ×2 (07:57→21:32)
[2017-05-05] MEDS: *HR* Enoxaparin 40 MG/0.4 ML SYRINGE SQ SCH (07:57)
[2017-05-05] MEDS: Ondansetron ODT 4 MG TAB.RAPDIS SL SCH ×3 (07:58→17:28)
--- NOTE | 2017-05-05 12:49 | Internal Med Progress Note ---
Date of Encounter: 05/05/17 Time of Encounter: 12:44 - Assessment and plan (1) Left humeral fracture Current Visit: Yes Status: Acute Assessment and plan: She continues with the therapies. She is getting better with dressing. Pain is under good control. We were told not to evaluate the incision site. She has an appointment Saturday with the surgical team. Qualifiers: Encounter type: initial encounter Humerus Location: shaft Fracture type: closed Fracture morphology: unspecified fracture morphology Qualified Code(s ): S42.302A - Unspecified fracture of shaft of humerus, left arm, initial encounter for closed fracture (2) History of pelvic fracture Current Visit: Yes Status: Acute Assessment and plan: Her pain is under fairly good control. However the pelvic fracture limits her ability to walk. She is getting improved but slowly (3) GERD (gastroesophageal reflux disease) Current Visit: Yes Status: Acute Assessment and plan: Reflux was under good control until lunch today. I think it may be because she was in bed and feet were up. She is to be seated in chair, feet flat on the floor and back upright when trying to eat. No red flags otherwise. Qualifiers: Esophagitis presence: esophagitis presence not specified Qualified Code(s) : K21.9 - Gastro-esophageal reflux disease without esophagitis (4) Back pain Current Visit: Yes Status: Acute Assessment and plan: Seems to be under adequate control. No radicular signs or red flags. Qualifiers: Back pain location: low back pain Chronicity: acute Back pain laterality : midline Sciatica presence: without sciatica Qualified Code(s): M54.5 - Low back pain (5) Fall with significant injury Current Visit: Yes Status: Acute Qualifiers: Encounter type: initial encounter Qualified Code(s): W19.XXXA - Unspecified fall, initial encounter (6) HTN (hypertension) Current Visit: Yes Status: Chronic Assessment and plan: Blood pressure under good control Qualifiers: Hypertension type: essential hypertension Qualified Code(s): I10 - Essential (primary) hypertension (7) Idiopathic peripheral neuropathy Current Visit: Yes Status: Chronic (8) Acute blood loss as cause of postoperative anemia Current Visit: Yes Status: Acute Assessment and plan: Her last hemoglobin was increased (9) DVT prophylaxis Current Visit: Yes Status: Acute - Subjective Interval history: She says that overall she is better, but today at lunch her GERD symptoms recurred. She was eating lunch in bed. Antacid afterwards made a big improvement. Bowels are moving normally. No chest pain. No dyspnea. Her pain control is good. Right now she is taking the Percocet every 4 hours though. I told her I should make this every 4 hours when necessary and so she can space things out. - Constitutional Vitals: Temp Pulse Resp BP Pulse Ox 97.7 F 76 16 119/69 92 05/05/17 09:00 05/05/17 09:00 05/05/17 09:00 05/05/17 09:00 05/05/17 09:00 General appearance: Present: A&O X 3, pleasant, no acute distress, answers questions appropriately - Respiratory Respiratory exam: Present: decreased breath sounds, CTAB. Absent: respiratory distress - Cardiovascular Cardiovascular exam: Present: RRR, +S1, +S2. Absent: systolic murmur - GI/Abdominal GI/Abdominal exam: Present: normal bowel sounds. Absent: tenderness - Extremities Exam Extremities exam: Present: pedal edema Internal Medicine: Result - Labs CBC & Chem 7: 05/02/17 13:34 05/02/17 13:34 - VTE Documentation of Mechanical Device: Graduated compression elastic hosiery Consult Discharge Plan - Plan Referrals: Jamin Villa MD [Primary Care Provider] -
[2017-05-05] MEDS: *HR* OxyCODONE/APAP 5/325 TABLET PO PRN (21:32)
[2017-05-06] MEDS: Ondansetron ODT 4 MG TAB.RAPDIS SL SCH ×3 (06:43→16:46)
[2017-05-06] MEDS: *HR* Enoxaparin 40 MG/0.4 ML SYRINGE SQ SCH (08:34)
[2017-05-06] MEDS: Pregabalin 50 MG CAPSULE PO SCH ×2 (08:34→20:39)
[2017-05-06] MEDS: *HR* OxyCODONE/APAP 5/325 TABLET PO PRN ×3 (08:39→20:39)
--- NOTE | 2017-05-06 13:40 | Internal Med Progress Note ---
Date of Encounter: 05/06/17 Time of Encounter: 13:35 - Assessment and plan (1) Left humeral fracture Current Visit: Yes Status: Acute Assessment and plan: Continued with therapy regarding her left upper extremity humeral fracture. I was told that the staff was told not to check the incision or unwrap the dressing and leave that to the surgeon. We need to verify when her surgical follow-up has been scheduled. Pain is under good control with oxycodone. Qualifiers: Encounter type: initial encounter Humerus Location: shaft Fracture type: closed Fracture morphology: unspecified fracture morphology Qualified Code(s ): S42.302A - Unspecified fracture of shaft of humerus, left arm, initial encounter for closed fracture (2) History of pelvic fracture Current Visit: Yes Status: Acute Assessment and plan: Continues to have pain when standing or trying to walk. Percocet has been helpful. She is able to do her transfers. (3) GERD (gastroesophageal reflux disease) Current Visit: Yes Status: Acute Assessment and plan: Overall she is improved. Occasion she will have nausea. No vomiting. Continue the current regimen. Qualifiers: Esophagitis presence: esophagitis presence not specified Qualified Code(s) : K21.9 - Gastro-esophageal reflux disease without esophagitis (4) Back pain Current Visit: Yes Status: Acute Qualifiers: Back pain location: low back pain Chronicity: acute Back pain laterality : midline Sciatica presence: without sciatica Qualified Code(s): M54.5 - Low back pain (5) Fall with significant injury Current Visit: Yes Status: Acute Qualifiers: Encounter type: initial encounter Qualified Code(s): W19.XXXA - Unspecified fall, initial encounter (6) HTN (hypertension) Current Visit: Yes Status: Chronic Assessment and plan: Hypertension under good control. Stay in the same medication. Follow-up lab work ordered for tomorrow. Qualifiers: Hypertension type: essential hypertension Qualified Code(s): I10 - Essential (primary) hypertension (7) Idiopathic peripheral neuropathy Current Visit: Yes Status: Chronic (8) Acute blood loss as cause of postoperative anemia Current Visit: Yes Status: Acute Assessment and plan: Follow-up hemoglobin ordered for tomorrow. (9) DVT prophylaxis Current Visit: Yes Status: Acute - Subjective Interval history: The only acute complaint the patient has is that she is concerned she is getting an infection on her lips and she felt like she had scraped the skin off the right lower lip. No fevers or chills. No pulmonary symptoms. No cardiac type chest pain. Intermittently she has had some GI reflux symptoms but not as bad as before. She just was not hungry for breakfast. No vomiting. Bowels and bladder are working well. Pain is under good control while in bed. She can move her lower extremities. However when trying to stand she states she cannot move her feet to walk because her right hip area hurts. Otherwise she thinks her pain is under adequate control. No new symptoms for the left upper extremity which is in a brace. - Constitutional Vitals: Temp Pulse Resp BP Pulse Ox 97.9 F 69 18 149/68 89 05/06/17 07:13 05/06/17 07:13 05/06/17 07:13 05/06/17 07:13 05/06/17 07:13 General appearance: Present: A&O X 3, pleasant, no acute distress, answers questions appropriately - ENT Additional comments: The lips are normal. I see no vesicles or redness or drainage. Lips are nontender on palpation. - Respiratory Respiratory exam: Present: CTAB. Absent: respiratory distress - Cardiovascular Cardiovascular exam: Present: RRR, +S1, +S2. Absent: systolic murmur - GI/Abdominal GI/Abdominal exam: Present: soft. Absent: tenderness - Extremities Exam Extremities exam: Absent: calf tenderness Additional comments: mild edema lower legs. in stockings Internal Medicine: Result - Labs CBC & Chem 7: 05/02/17 13:34 05/02/17 13:34 - VTE Documentation of Mechanical Device: Graduated compression elastic hosiery Consult Discharge Plan - Plan Referrals: Jamin Villa MD [Primary Care Provider] -
[2017-05-06] MEDS: Mag Hydrox/Al Hydrox/Simeth 30 ML UDC PO PRN (16:46)
[2017-05-06] MEDS: *HR* LORazepam 0.5 MG TABLET PO PRN (20:39)
[2017-05-07] MEDS: *HR* OxyCODONE/APAP 5/325 TABLET PO PRN ×4 (03:54→17:57)
[2017-05-07 05:44] LABS: Basophils % 0.3 %; Eosinophils # 0.1 K/mcL (0.0-0.6); Eosinophils % 3.6 %; Hematocrit 30.3 % (35.3-44.9); Hemoglobin 9.4 g/dL (11.5-15.4); Immature Granulocytes % 0.3 % (0-4); Lymphocytes # 0.9 K/mcL (0.6-4.6); Lymphocytes % 29.5 %; Mean Corpuscular Hemoglobin 31.6 pg (28.0-33.3); Mean Platelet Volume 10.3 fL (9.4-12.4); Monocytes # 0.3 K/mcL (0.0-1.3); Monocytes % 8.2 %; Neutrophils # 1.8 K/mcL (1.6-8.9); Platelet Count 192 K/mcL (140-400); Red Blood Count 2.97 M/mcL (3.82-4.97); Red Cell Distribution Width 16.2 % (11.5-14.5); Segmented Neutrophils % 58.1 %
[2017-05-07 06:03] LABS: Chloride 104 mEq/L (98-109); Sodium 140 mEq/L (136-145)
[2017-05-07 06:04] LABS: BUN/Creatinine Ratio 18 (6-26); Blood Urea Nitrogen 14 mg/dL (7-20); Calcium 9.6 mg/dL (8.6-10.8); Carbon Dioxide 28 mEq/L (19-29); Glucose 102 mg/dL (70-99); Osmolality,Calculated 291 (280-300); Potassium 4.1 mEq/L (3.5-4.5); eGFR For African Americans > 60 (> 60); eGFR For Non-African Americans > 60 (> 60)
[2017-05-07] MEDS: Pregabalin 50 MG CAPSULE PO SCH ×2 (08:28→20:25)
[2017-05-07] MEDS: Mag Hydrox/Al Hydrox/Simeth 30 ML UDC PO PRN (08:29)
[2017-05-07] MEDS: Ondansetron ODT 4 MG TAB.RAPDIS SL SCH ×3 (08:29→17:57)
[2017-05-07] MEDS: *HR* Enoxaparin 40 MG/0.4 ML SYRINGE SQ SCH (08:29)
--- NOTE | 2017-05-07 10:24 | Internal Med Progress Note ---
Date of Encounter: 05/07/17 Time of Encounter: 10:17 - Assessment and plan (1) Left humeral fracture Current Visit: Yes Status: Acute Assessment and plan: She will see the orthopedic department for postop care of the left humerus fracture. She remains in the brace in the meantime. She will require a standard wheelchair with a left break stockroom clerk because of the humerus fracture. Prescription has been written. Patient requires the assistance of a standard wheelchair to successfully complete daily living tasks of : toileting, feeding, bathing, dressing and grooming, or any other daily living tasks in the home. The standard wheelchair is necessary due to the patient's impaired ambulation and mobility restrictions and would be unable to resolve these daily living tasks using a cane or walker. The patient is capable of using a standard wheelchair safely in their home and can maneuver within their home with adequate access. There is a caregiver available to provide assistance. The patient has not expressed an unwillingness to use the wheelchair. Qualifiers: Encounter type: initial encounter Humerus Location: shaft Fracture type: closed Fracture morphology: unspecified fracture morphology Qualified Code(s ): S42.302A - Unspecified fracture of shaft of humerus, left arm, initial encounter for closed fracture (2) History of pelvic fracture Current Visit: Yes Status: Acute Assessment and plan: She still has several pain in the right groin and hip area when trying to ambulate using the left lower extremity. At discharge she will be using a wheelchair most of the time. A prescription has been written. Patient requires the assistance of a standard wheelchair with left breke stockroom clerk to successfully complete daily living tasks of : toileting, feeding, bathing, dressing and grooming, or any other daily living tasks in the home. The standard wheelchair is necessary due to the patient's impaired ambulation and mobility restrictions and would be unable to resolve these daily living tasks using a cane or walker. The patient is capable of using a standard wheelchair safely in their home and can maneuver within their home with adequate access. There is a caregiver available to provide assistance. The patient has not expressed an unwillingness to use the wheelchair. Patient will also require a hospital bed. Prescription has been written. Patient requires the assistance of a semi-electric hospital bed to make frequent and immediate changes of body positions not feasible with an ordinary bed to relieve pain. The patient needs bed height requirements to perform patient transfers, grooming and daily living tasks. (3) GERD (gastroesophageal reflux disease) Current Visit: Yes Status: Acute Assessment and plan: Her symptoms have improved. Continue with the Zofran and antacid use Qualifiers: Esophagitis presence: esophagitis presence not specified Qualified Code(s) : K21.9 - Gastro-esophageal reflux disease without esophagitis (4) Back pain Current Visit: Yes Status: Acute Qualifiers: Back pain location: low back pain Chronicity: acute Back pain laterality : midline Sciatica presence: without sciatica Qualified Code(s): M54.5 - Low back pain (5) Fall with significant injury Current Visit: Yes Status: Acute Assessment and plan: Patient will be discharged with a wheelchair with left breke stockroom clerk, hospital bed and bedside commode. Qualifiers: Encounter type: initial encounter Qualified Code(s): W19.XXXA - Unspecified fall, initial encounter (6) HTN (hypertension) Current Visit: Yes Status: Chronic Assessment and plan: Blood pressure has been under good control. Qualifiers: Hypertension type: essential hypertension Qualified Code(s): I10 - Essential (primary) hypertension (7) Idiopathic peripheral neuropathy Current Visit: Yes Status: Chronic (8) Acute blood loss as cause of postoperative anemia Current Visit: Yes Status: Acute Assessment and plan: Her hemoglobin has been relatively stable, not back to normal yet though. (9) DVT prophylaxis Current Visit: Yes Status: Acute - Subjective Interval history: Patient continues to have troubles with ambulation as she has right groin and pelvic pain when trying to move the left lower leg because the pelvic fracture. She is successfully using a wheelchair though. She thinks her pain control is adequate until she is at the upright position and trying to walk. She denies any significant pain in the left shoulder. She continues with the brace. She will see the orthopedic office today regarding postop visit for the healing fracture. Home safety visit planned for tomorrow as it is projected that she will be discharged with frequent use of the wheelchair in the home until the pelvic fracture can heal. She denies any cardiac, respiratory, GI or symptoms acutely. - Constitutional Vitals: Temp Pulse Resp BP Pulse Ox 97.6 F 76 16 141/74 93 05/07/17 07:09 05/07/17 07:09 05/07/17 07:09 05/07/17 07:09 05/07/17 07:09 General appearance: Present: A&O X 3, pleasant, no acute distress, answers questions appropriately - Respiratory Respiratory exam: Present: decreased breath sounds, CTAB - Cardiovascular Cardiovascular exam: Present: RRR, +S1, +S2 - Extremities Exam Additional comments: left arm in the shoulder brace. No edema in hand.Lower ext still swollen a bit even with stockings. Internal Medicine: Result - Labs CBC & Chem 7: 05/07/17 05:20 05/07/17 05:20 Labs: Labs reviewed. Mild leukocytosis. Hgb stable. Renal and electrolytes normal. Short CBC 05/07/17 Range/Units 05:20 WBC 3.1 L D (4.3-11.1) K/mcL Hgb 9.4 L (11.5-15.4) g/dL Hct 30.3 L (35.3-44.9) % Plt Count 192 (140-400) K/mcL Neutrophils # 1.8 (1.6-8.9) K/mcL BMP 05/07/17 05:20 Sodium 140 Potassium 4.1 Chloride 104 Carbon Dioxide 28 BUN 14 Creatinine 0.78 Glucose 102 H Calcium 9.6 - VTE Documentation of Mechanical Device: Graduated compression elastic hosiery Consult Discharge Plan - Plan Referrals: Jamin Villa MD [Primary Care Provider] -
[2017-05-07] MEDS: *HR* LORazepam 0.5 MG TABLET PO PRN (20:25)
[2017-05-08] MEDS: *HR* OxyCODONE/APAP 5/325 TABLET PO PRN ×4 (05:34→21:11)
[2017-05-08] MEDS: Pregabalin 50 MG CAPSULE PO SCH ×2 (07:55→21:11)
[2017-05-08] MEDS: *HR* Enoxaparin 40 MG/0.4 ML SYRINGE SQ SCH (07:56)
[2017-05-08] MEDS: Ondansetron ODT 4 MG TAB.RAPDIS SL SCH ×3 (07:56→16:59)
--- NOTE | 2017-05-08 09:41 | Internal Med Progress Note ---
Date of Encounter: 05/08/17 Time of Encounter: 09:36 - Assessment and plan (1) Left humeral fracture Current Visit: Yes Status: Acute Assessment and plan: Was evaluated for postop care by orthopedic clinic yesterday. No change in orders. Qualifiers: Encounter type: initial encounter Humerus Location: shaft Fracture type: closed Fracture morphology: unspecified fracture morphology Qualified Code(s ): S42.302A - Unspecified fracture of shaft of humerus, left arm, initial encounter for closed fracture (2) History of pelvic fracture Current Visit: Yes Status: Acute Assessment and plan: Continues to be the biggest complaint with right groin pain. She will be going to home for safety visit to see how she does with wheelchair (3) GERD (gastroesophageal reflux disease) Current Visit: Yes Status: Acute Qualifiers: Esophagitis presence: esophagitis presence not specified Qualified Code(s) : K21.9 - Gastro-esophageal reflux disease without esophagitis (4) Back pain Current Visit: Yes Status: Acute Qualifiers: Back pain location: low back pain Chronicity: acute Back pain laterality : midline Sciatica presence: without sciatica Qualified Code(s): M54.5 - Low back pain (5) Fall with significant injury Current Visit: Yes Status: Acute Qualifiers: Encounter type: initial encounter Qualified Code(s): W19.XXXA - Unspecified fall, initial encounter (6) HTN (hypertension) Current Visit: Yes Status: Chronic Qualifiers: Hypertension type: essential hypertension Qualified Code(s): I10 - Essential (primary) hypertension (7) Idiopathic peripheral neuropathy Current Visit: Yes Status: Chronic (8) Acute blood loss as cause of postoperative anemia Current Visit: Yes Status: Acute (9) DVT prophylaxis Current Visit: Yes Status: Acute - Subjective Interval history: I saw the patient in the therapy room. She and her family are getting ready for a safety visit at home. She saw all the orthopedist clinic yesterday, dressing was changed and no change in orders noted. She is still requiring Percocet. This morning she went about 5 or more hours between doses. She denies any cardiac or respiratory symptoms. Her biggest complaint is pain in the groin. - Constitutional Vitals: Temp Pulse Resp BP Pulse Ox 98.0 F 82 16 143/84 94 05/08/17 07:43 05/08/17 07:43 05/08/17 07:43 05/08/17 07:43 05/08/17 07:43 General appearance: Present: A&O X 3, pleasant, no acute distress, answers questions appropriately Internal Medicine: Result - Labs CBC & Chem 7: 05/07/17 05:20 05/07/17 05:20 - VTE Documentation of Mechanical Device: Graduated compression elastic hosiery Consult Discharge Plan - Plan Referrals: Jamin Villa MD [Primary Care Provider] -
[2017-05-08] MEDS: *HR* LORazepam 0.5 MG TABLET PO PRN (21:11)
[2017-05-09] MEDS: *HR* Enoxaparin 40 MG/0.4 ML SYRINGE SQ SCH (08:30)
[2017-05-09] MEDS: *HR* LORazepam 0.5 MG TABLET PO PRN ×2 (08:31→21:35)
[2017-05-09] MEDS: Pregabalin 50 MG CAPSULE PO SCH ×2 (08:31→21:35)
[2017-05-09] MEDS: *HR* OxyCODONE/APAP 5/325 TABLET PO PRN ×3 (08:37→18:29)
[2017-05-09] MEDS: Ondansetron ODT 4 MG TAB.RAPDIS SL SCH ×3 (12:28→18:29)
[2017-05-09] MEDS: Mag Hydrox/Al Hydrox/Simeth 30 ML UDC PO PRN (12:28)
--- NOTE | 2017-05-09 17:35 | Internal Med Progress Note ---
Date of Encounter: 05/09/17 Time of Encounter: 17:35 - Assessment and plan (1) Left humeral fracture Current Visit: Yes Status: Acute Assessment and plan: She appears to be healing appropriately of the humerus fracture. Continue with the orthopedic orders. Pain is under adequate control Qualifiers: Encounter type: initial encounter Humerus Location: shaft Fracture type: closed Fracture morphology: unspecified fracture morphology Qualified Code(s ): S42.302A - Unspecified fracture of shaft of humerus, left arm, initial encounter for closed fracture (2) History of pelvic fracture Current Visit: Yes Status: Acute Assessment and plan: Right pelvic fracture enters her ambulation and will need to be in a wheelchair most of the time. She will be transferred to home tomorrow. She will have home based PT and OT (3) GERD (gastroesophageal reflux disease) Current Visit: Yes Status: Acute Assessment and plan: Appears to be under adequate control. Qualifiers: Esophagitis presence: esophagitis presence not specified Qualified Code(s) : K21.9 - Gastro-esophageal reflux disease without esophagitis (4) Back pain Current Visit: Yes Status: Acute Qualifiers: Back pain location: low back pain Chronicity: acute Back pain laterality : midline Sciatica presence: without sciatica Qualified Code(s): M54.5 - Low back pain (5) Fall with significant injury Current Visit: Yes Status: Acute Qualifiers: Encounter type: initial encounter Qualified Code(s): W19.XXXA - Unspecified fall, initial encounter (6) HTN (hypertension) Current Visit: Yes Status: Chronic Qualifiers: Hypertension type: essential hypertension Qualified Code(s): I10 - Essential (primary) hypertension (7) Idiopathic peripheral neuropathy Current Visit: Yes Status: Chronic (8) Acute blood loss as cause of postoperative anemia Current Visit: Yes Status: Acute (9) DVT prophylaxis Current Visit: Yes Status: Acute - Subjective Interval history: Patient reports that she did well with her home safety visit and feels ready for discharge tomorrow. She denies any respiratory or cardiac symptoms. Her pain is under adequate control. She is able to move through the hallways in her wheelchair quite well. - Constitutional Vitals: Temp Pulse Resp BP Pulse Ox 98.0 F 91 18 148/55 90 05/09/17 08:31 05/09/17 08:31 05/09/17 08:31 05/09/17 08:31 05/09/17 08:31 General appearance: Present: A&O X 3, pleasant, no acute distress, answers questions appropriately - Respiratory Respiratory exam: Present: decreased breath sounds, CTAB - Cardiovascular Cardiovascular exam: Present: RRR, +S1, +S2 - Extremities Exam Extremities exam: Absent: pedal edema Additional comments: Left upper extremity in the shoulder brace Internal Medicine: Result - Labs CBC & Chem 7: 05/07/17 05:20 05/07/17 05:20 - VTE Documentation of Mechanical Device: Graduated compression elastic hosiery Consult Discharge Plan - Plan Referrals: Jamin Villa MD [Primary Care Provider] -
[2017-05-09 19:39] VITALS: BP 116/66
--- NOTE | 2017-05-09 22:16 | Discharge Summary ---
Date of Encounter: 05/10/17 Time of Encounter: 06:56 - Discharge Diagnosis (1) Left humeral fracture Priority: Primary Status: Acute Comments: Patient was admitted to rehabilitation swing bed with left humeral fracture and right pelvic fracture. She is status post ORIF. Her honeycomb dressing was recently changed by the orthopedic group. She remains in the shoulder brace. Pain has been under adequate control. She will continue with PT and OT and adapting her ADLs. She will follow up with surgery as planned Qualifiers: Encounter type: initial encounter Humerus Location: shaft Fracture type: closed Fracture morphology: unspecified fracture morphology Qualified Code(s ): S42.302A - Unspecified fracture of shaft of humerus, left arm, initial encounter for closed fracture (2) History of pelvic fracture Priority: Secondary Status: Acute Comments: History of right superior and inferior pubic ramus fractures. This hinders her mobility significantly. She cannot walk adequately because of pain in the right groin which goes to lift her left leg to ambulate. It is also difficult to maneuver because of the left humerus fracture. She is now mobile in her wheelchair. Home safety visit found that she is an appropriate candidate for discharge to home with ongoing PT and OT. No major barriers were found according to verbal report to me. (3) GERD (gastroesophageal reflux disease) Priority: Secondary Status: Acute Comments: During this hospital stay she experienced lots of GERD symptoms. Improved with Zofran and liquid antacid. CAT scan was unremarkable for acute changes, she chronically has large hiatus hernia. Qualifiers: Esophagitis presence: esophagitis presence not specified Qualified Code(s) : K21.9 - Gastro-esophageal reflux disease without esophagitis (4) Back pain Priority: Secondary Status: Acute Qualifiers: Back pain location: low back pain Chronicity: acute Back pain laterality : midline Sciatica presence: without sciatica Qualified Code(s): M54.5 - Low back pain (5) Fall with significant injury Priority: Secondary Status: Acute Qualifiers: Encounter type: initial encounter Qualified Code(s): W19.XXXA - Unspecified fall, initial encounter (6) HTN (hypertension) Priority: Secondary Status: Chronic Comments: Long-standing history of hypertension. During hospital course her blood pressure was under reasonable control. Qualifiers: Hypertension type: essential hypertension Qualified Code(s): I10 - Essential (primary) hypertension (7) Idiopathic peripheral neuropathy Priority: Secondary Status: Chronic Comments: She chronically has idiopathic peripheral neuropathy and has tried numerous medications. Continues with Lyrica currently (8) Acute blood loss as cause of postoperative anemia Priority: Secondary Status: Acute Comments: Her hemoglobin has stabilized and increased a bit. We will recheck later to be sure he gets back to preoperative (9) DVT prophylaxis Priority: Secondary Status: Resolved - Discharge Medications Prescriptions: OxyCODONE/APAP 5/325 [Percocet 5/325 MG] 1 each PO Q4HR PRN #100 tablet PRN Reason: Pain Home Medications: Loratadine [Allergy Relief] 10 mg PO DAILY 04/21/17 [History] Mirabegron [Myrbetriq] 50 mg PO DAILY 04/21/17 [History] Omeprazole [PriLOSEC] 20 mg PO DAILY 04/21/17 [History] Polyethylene Glycol 3350 [MiraLAX] 17 gm PO DAILY 04/21/17 [History] Potassium Chloride [Klor-Con 10] 10 meq PO DAILY 04/21/17 [History] Pravastatin Sodium [Pravachol] 40 mg PO QPM 04/21/17 [History] Pregabalin [Lyrica] 100 mg PO BID 04/21/17 [History] Solifenacin Succinate [Vesicare] 5 mg PO DAILY 04/21/17 [History] Docusate [Colace] 100 mg PO BID capsule 04/22/17 [Rx] LORazepam [Ativan] 0.5 mg PO DAILY PRN #10 tablet 04/22/17 [Rx] Mag Hydrox/Al Hydrox/Simeth [Maalox] 30 ml PO Q4H PRN udc 05/09/17 [Rx] OxyCODONE/APAP 5/325 [Percocet 5/325 MG] 1 each PO Q4HR PRN #100 tablet [Rx] Allergies/Adverse Reactions: 3 Allergy/AdvReac Type Severity Reaction Status Date / Time No Known Allergies Allergy Verified 04/21/17 11:15 Procedures/tests Complete & Pending: Completed Lab Orders Category Date Time Status BMP [Basic Metabolic Panel] AM 0400 Lab 05/07/17 05:20 Completed Basic Metabolic Panel AM 0400 Lab 04/30/17 05:00 Completed Complete Blood Count [HEME] AM 0400 Lab 05/07/17 05:20 Completed Complete Blood Count [HEME] Routine Lab 05/02/17 13:34 Completed Complete Blood Count w/o Diff [HEME] AM 0400 Lab 04/30/17 05:00 Completed Comprehensive Metabolic Panel Routine Lab 05/02/17 13:34 Completed Hemoglobin [HEME] AM 0400 Lab 04/26/17 04:30 Completed Urinalysis Reflex Cult & Micro [URIN] Routine Lab 04/29/17 13:00 Completed Completed Imaging Orders Category Date Time Status CT abd pelvis w iv and oral [CT] Routine Cat Scan 05/02/17 13:[address] hip RT wo con [CT] Routine Cat Scan 04/29/17 13:11 Completed Completed Microbiology Orders Category Date Time Status Culture,Urine [RM] Routine Lab 04/29/17 13:00 Completed Laboratory Tests 04/26/17 04/29/17 04/30/17 04:30 13:00 05:00 WBC 6.9 D RBC 2.83 L Hgb 8.7 L 9.2 L Hct 28.2 L MCV 99.6 MCH 32.5 MCHC 32.6 RDW 15.7 H Plt Count 183 MPV 9.7 Immature Gran % Seg Neutrophils % Lymphocytes % Monocytes % Eosinophils % Basophils % Neutrophils # Lymphocytes # Monocytes # Eosinophils # Basophils # Sodium Potassium Chloride Carbon Dioxide BUN Creatinine Est GFR ( Amer) Est GFR (Non-Af Amer) BUN/Creatinine Ratio Glucose Calculated Osmolality Calcium Total Bilirubin AST ALT Alkaline Phosphatase Serum Total Protein Albumin Globulin Albumin/Globulin Ratio Urine Color Yellow Urine Clarity Cloudy A Urine pH 6.0 Ur Specific [place] 1.020 Urine Protein Trace Urine Glucose (UA) Normal Urine Ketones Negative Urine Blood Trace-intact H Urine Nitrite Positive A Urine Bilirubin Negative Urine Urobilinogen Normal Ur Leukocyte Esterase Moderate H Urine Microscopic RBC 0-3 Urine Microscopic WBC 50-100 H Ur Squamous Epith Cells Many H Urine Bacteria Many H Ur Culture Indicated? NO 04/30/17 05/02/17 05/02/17 05:00 13:34 13:34 WBC 7.2 RBC 3.12 L Hgb 10.2 L Hct 31.5 L MCV 101.0 H MCH 32.7 MCHC 32.4 RDW 16.5 H Plt Count 220 MPV 9.5 Immature Gran % 1.1 Seg Neutrophils % 74.7 Lymphocytes % 17.3 Monocytes % 4.4 Eosinophils % 2.2 Basophils % 0.3 Neutrophils # 5.4 Lymphocytes # 1.3 Monocytes # 0.3 Eosinophils # 0.2 Basophils # 0.0 Sodium 140 138 Potassium 3.7 3.9 Chloride 102 101 Carbon Dioxide 29 27 BUN 16 13 Creatinine 0.74 0.76 Est GFR ( Amer) > 60 > 60 Est GFR (Non-Af Amer) > 60 > 60 BUN/Creatinine Ratio 22 17 Glucose 113 H 101 H Calculated Osmolality 292 286 Calcium 9.6 9.9 Total Bilirubin 0.9 AST 25 ALT 21 Alkaline Phosphatase 123 Serum Total Protein 6.1 Albumin 3.1 L Globulin 3.0 Albumin/Globulin Ratio 1.0 L Urine Color Urine Clarity Urine pH Ur Specific [place] Urine Protein Urine Glucose (UA) Urine Ketones Urine Blood Urine Nitrite Urine Bilirubin Urine Urobilinogen Ur Leukocyte Esterase Urine Microscopic RBC Urine Microscopic WBC Ur Squamous Epith Cells Urine Bacteria Ur Culture Indicated? 05/07/17 05/07/17 05:20 05:20 WBC 3.1 L D RBC 2.97 L Hgb 9.4 L Hct 30.3 L MCV 102.0 H MCH 31.6 MCHC 31.0 L RDW 16.2 H Plt Count 192 MPV 10.3 Immature Gran % 0.3 Seg Neutrophils % 58.1 Lymphocytes % 29.5 Monocytes % 8.2 Eosinophils % 3.6 Basophils % 0.3 Neutrophils # 1.8 Lymphocytes # 0.9 Monocytes # 0.3 Eosinophils # 0.1 Basophils # 0.0 Sodium 140 Potassium 4.1 Chloride 104 Carbon Dioxide 28 BUN 14 Creatinine 0.78 Est GFR ( Amer) > 60 Est GFR (Non-Af Amer) > 60 BUN/Creatinine Ratio 18 Glucose 102 H Calculated Osmolality 291 Calcium 9.6 Total Bilirubin AST ALT Alkaline Phosphatase Serum Total Protein Albumin Globulin Albumin/Globulin Ratio Urine Color Urine Clarity Urine pH Ur Specific [place] Urine Protein Urine Glucose (UA) Urine Ketones Urine Blood Urine Nitrite Urine Bilirubin Urine Urobilinogen Ur Leukocyte Esterase Urine Microscopic RBC Urine Microscopic WBC Ur Squamous Epith Cells Urine Bacteria Ur Culture Indicated? Date of admission: 04/24/17 14:04 Primary care physician: Jamin Villa MD Consults: 04/24/17 15:21 Consult to Occupational Therapy [CONS] Routine Comment: Evaluate, develop and implement POC Reason for Consult: s/p left humerus fx s/p subacute pelvis fx Consult to Physical Therapy [CONS] Routine Comment: Evaluate, develop and implement POC Reason for Consult: s/p left humerus fx s/p subacute pelvis fx Consult to Recreational Therapy [CONS] Routine Comment: Evaluate, develop and implement POC Consult to Inspection Clerk [CONS] Routine Reason for SW Consult: Advanced directive info requested Discharging clinician: Jamin Villa Anticipated date of discharge: 05/10/17 - Patient Status Disposition: Home Health Service Condition: Good Functional capacity at discharge: wheelchair bound Overall status at discharge: patient is not back to baseline - Discharge Instructions Follow Up With: Jamin Villa MD [Primary Care Provider] - (Will make house all) - Diet and Activity Activity: as per physical therapy Diet: low salt diet Interval History: Overnight patient is done well. Pain is under good control. Denies any cardiac or respiratory symptoms today. She is eager to go home. Hospital course: Ms. Khan is a 81 year old female who was admitted to the rehabilitation center with a history of left humerus fracture and ORIF as well as right superior and inferior pubic ramus fractures. At this point she has plateaued on her activity level and unable to walk consistently because of the pelvic pain. She will be discharged with use of a wheelchair. She is undergone home safety visit did well. She will follow up with the surgeon as planned. I will make a house call as needed. She will continue with Percocet every 4 hours when necessary for pain. Please see the above diagnoses and hospital course - Time Spent with Patient Total time spent providing and/or coordinating discharge services: - Constitutional Vitals: Temp Pulse Resp BP Pulse Ox 97.8 F 90 91 116/66 90 05/09/17 19:00 05/09/17 19:00 05/09/17 19:00 05/09/17 19:00 05/09/17 08:31 General appearance: Present: A&O X 3, pleasant, no acute distress, answers questions appropriately - Respiratory Respiratory exam: Present: decreased breath sounds, CTAB - Cardiovascular Cardiovascular exam: Present: RRR (With occasional ectopy), +S1, +S2. Absent: systolic murmur - Extremities Exam Additional comments: Left upper extremity in the shoulder brace. Left hand is not swollen. Lower extremities are in elastic stockings still some edema. Calves are nontender - VTE Documentation of Mechanical Device: Graduated compression elastic hosiery
[2017-05-10] MEDS: *HR* OxyCODONE/APAP 5/325 TABLET PO PRN (04:55)
--- NOTE | 2017-05-10 07:41 | Physician Discharge Referral ---
Home Health/Hosp Referral Info Transfer to: Home Health Attending Provider: Jamin Villa MD Provider in Charge Post Discharge: PCP (Gita) - Diagnosis (1) Left humeral fracture Priority: Primary Status: Acute (2) History of pelvic fracture Priority: Secondary Status: Acute (3) GERD (gastroesophageal reflux disease) Priority: Secondary Status: Acute (4) Back pain Priority: Secondary Status: Acute (5) Fall with significant injury Priority: Secondary Status: Acute (6) HTN (hypertension) Priority: Secondary Status: Chronic (7) Idiopathic peripheral neuropathy Priority: Secondary Status: Chronic (8) Acute blood loss as cause of postoperative anemia Priority: Secondary Status: Acute (9) DVT prophylaxis Priority: Secondary Status: Resolved - Respiratory Orders Smoking Cessation: Smoking cessation has been advised. For more information, call the [employer] Quit Line at 2-956-YLJM-NOW. - Diet/Nutrition Diet/Nutrition Orders: No Added Salt (MELVIN) - Activity Activity: List: uses wheelchair until advanced per PT - Services Needed Following services are medically necessary services: Nursing, Home Health Aide, Physical Therapy, Occupational Therapy - Transfer Medications Prescriptions: OxyCODONE/APAP 5/325 [Percocet 5/325 MG] 1 each PO Q4HR PRN #100 tablet PRN Reason: Pain Home Medications: Loratadine [Allergy Relief] 10 mg PO DAILY 04/21/17 [History] Mirabegron [Myrbetriq] 50 mg PO DAILY 04/21/17 [History] Omeprazole [PriLOSEC] 20 mg PO DAILY 04/21/17 [History] Polyethylene Glycol 3350 [MiraLAX] 17 gm PO DAILY 04/21/17 [History] Potassium Chloride [Klor-Con 10] 10 meq PO DAILY 04/21/17 [History] Pravastatin Sodium [Pravachol] 40 mg PO QPM 04/21/17 [History] Pregabalin [Lyrica] 100 mg PO BID 04/21/17 [History] Solifenacin Succinate [Vesicare] 5 mg PO DAILY 04/21/17 [History] Docusate [Colace] 100 mg PO BID capsule 04/22/17 [Rx] LORazepam [Ativan] 0.5 mg PO DAILY PRN #10 tablet 04/22/17 [Rx] Mag Hydrox/Al Hydrox/Simeth [Maalox] 30 ml PO Q4H PRN udc 05/09/17 [Rx] OxyCODONE/APAP 5/325 [Percocet 5/325 MG] 1 each PO Q4HR PRN #100 tablet [Rx] Allergies/Adverse Reactions: 3 Allergy/AdvReac Type Severity Reaction Status Date / Time No Known Allergies Allergy Verified 04/21/17 11:15 Certification: Further, I certify that my clinical findings support that this patient is homebound (i.e. absences from home require considerable and taxing effort and are for medical reasons or gnosticist services or infrequently or short duration when for other reasons) because: Homebound Reason: Patient requires assistance of a person or device to safely leave home, Leaving home requires considerable and taxing effort due to condition Attestation: My signature below is to certify that this patient is under my care and that I, or nurse practitioner, or a physician's or assistant working with me, has a face-to -face encounter with this patient.
[2017-05-10] MEDS: *HR* Enoxaparin 40 MG/0.4 ML SYRINGE SQ SCH (08:09)
[2017-05-10] MEDS: *HR* LORazepam 0.5 MG TABLET PO PRN (08:09)
[2017-05-10] MEDS: Pregabalin 50 MG CAPSULE PO SCH (08:09)
[2017-05-10] MEDS: Ondansetron ODT 4 MG TAB.RAPDIS SL SCH (08:10)
== END 2017-05-10 11:45 | disposition home health service (06) | DRG 560 ==
LOC: INPGRE 14:04
PROVIDERS: ADMIT Family Medicine; ATTEND Family Medicine

== ENCOUNTER 2020-10-19 14:42 | Observation (INO) ==
[2020-10-19 15:21] LABS: Basophils % 0.3 %; Eosinophils # 0.1 K/mcL (0.0-0.6); Eosinophils % 0.9 %; Hematocrit 37.7 % (35.3-44.9); Hemoglobin 13.2 g/dL (11.5-15.4); Immature Granulocytes % 0.4 % (0-4); Lymphocytes # 1.3 K/mcL (0.6-4.6); Lymphocytes % 18.2 %; Mean Corpuscular Hemoglobin 29.8 pg (28.0-33.3); Mean Corpuscular Volume 85.1 fL (83.0-100.0); Mean Platelet Volume 9.8 fL (9.4-12.4); Monocytes # 0.7 K/mcL (0.0-1.3); Monocytes % 10.1 %; Neutrophils # 4.9 K/mcL (1.6-8.9); Platelet Count 193 K/mcL (140-400); Red Blood Count 4.43 M/mcL (3.82-4.97); Red Cell Distribution Width 13.1 % (11.5-14.5); Segmented Neutrophils % 70.1 %; White Blood Count 6.9 K/mcL (4.3-11.1)
[2020-10-19 15:40] LABS: BUN/Creatinine Ratio 22 (6-26); Blood Urea Nitrogen 18 mg/dL (8-23); Calcium 9.1 mg/dL (8.6-10.3); Carbon Dioxide 30 mEq/L (23-29); Chloride 86 mEq/L (98-107); Glucose 116 mg/dL (70-105); Osmolality,Calculated 261 (280-300); Potassium 3.2 mEq/L (3.5-5.1); Sodium 124 mEq/L (136-145); eGFR For African Americans > 60 (> 60); eGFR For Non-African Americans > 60 (> 60)
[2020-10-19] MEDS ORDERED: 0.9 % Sodium Chloride 1,000 ML IVC SCH ×2 (16:00→17:44)
[2020-10-19] MEDS ORDERED: Naloxone 0.4 MG/ML INJ IVP PRN ×2 (16:00→17:44)
[2020-10-19] MEDS ORDERED: *HR* HYDROcodone/Acet 5/325 mg TABLET PO PRN ×2 (16:16→17:44)
[2020-10-19 20:11] LABS: BUN/Creatinine Ratio 23 (6-26); Blood Urea Nitrogen 17 mg/dL (8-23); Calcium 8.9 mg/dL (8.6-10.3); Carbon Dioxide 30 mEq/L (23-29); Chloride 89 mEq/L (98-107); Glucose 133 mg/dL (70-105); Osmolality,Calculated 263 (280-300); Potassium 3.1 mEq/L (3.5-5.1); Sodium 125 mEq/L (136-145); eGFR For African Americans > 60 (> 60); eGFR For Non-African Americans > 60 (> 60)
[2020-10-19] MEDS: Nitrofurantoin (BID) 100 MG CAPSULE PO SCH (20:54)
[2020-10-19] MEDS ORDERED: Nitrofurantoin (BID) 100 MG CAPSULE PO SCH (21:00)
[2020-10-19] MEDS ORDERED: *HR* Metoprolol 5 MG/5 ML VIAL IVP PRN (22:21)
[2020-10-20 01:05] LABS: BUN/Creatinine Ratio 19 (6-26); Blood Urea Nitrogen 14 mg/dL (8-23); Carbon Dioxide 29 mEq/L (23-29); Chloride 92 mEq/L (98-107); Glucose 115 mg/dL (70-105); Magnesium 1.6 mg/dL (1.6-2.6); Osmolality,Calculated 269 (280-300); Sodium 129 mEq/L (136-145); eGFR For African Americans > 60 (> 60); eGFR For Non-African Americans > 60 (> 60)
[2020-10-20] MEDS ORDERED: amLODIPine 5 MG TABLET PO SCH ×2 (05:00→09:00)
[2020-10-20] MEDS ORDERED: *HR* Enoxaparin 40 MG/0.4 ML SYRINGE SQ SCH (06:00)
[2020-10-20 06:07] LABS: BUN/Creatinine Ratio 18 (6-26); Blood Urea Nitrogen 12 mg/dL (8-23); Calcium 9.1 mg/dL (8.6-10.3); Carbon Dioxide 31 mEq/L (23-29); Chloride 92 mEq/L (98-107); Glucose 120 mg/dL (70-105); Osmolality,Calculated 271 (280-300); Potassium 3.2 mEq/L (3.5-5.1); Sodium 130 mEq/L (136-145); eGFR For African Americans > 60 (> 60); eGFR For Non-African Americans > 60 (> 60)
[2020-10-20] MEDS: Nitrofurantoin (BID) 100 MG CAPSULE PO SCH (08:58)
[2020-10-20] MEDS ORDERED: polyethylene glycoL 3350 17 GM POWD.PACK PO SCH ×2 (09:00)
[2020-10-20] MEDS ORDERED: Pregabalin 75 MG CAPSULE PO SCH (09:00)
[2020-10-20] MEDS ORDERED: Patient Taking Own Medication 1 EACH PO SCH ×2 (09:00)
[2020-10-20 09:19] LABS: Estimated Average Glucose 120 mg/dl; Hemoglobin A1C 5.8 %
[2020-10-20] MEDS ORDERED: Budesonide/Formoterol 160/4.5 1 PUFF INH IH SCH (10:00)
[2020-10-20 10:27] LABS: BUN/Creatinine Ratio 18 (6-26); Blood Urea Nitrogen 12 mg/dL (8-23); Calcium 9.1 mg/dL (8.6-10.3); Carbon Dioxide 30 mEq/L (23-29); Chloride 93 mEq/L (98-107); Glucose 196 mg/dL (70-105); Osmolality,Calculated 275 (280-300); Potassium 3.1 mEq/L (3.5-5.1); Sodium 130 mEq/L (136-145); eGFR For African Americans > 60 (> 60); eGFR For Non-African Americans > 60 (> 60)
[2020-10-20] MEDS ORDERED: Potassium Chloride 20 MEQ, Lidocaine 1% 2 ML in 0.9 % Sodium Chloride 250 ML IVPB ONE (11:00)
[2020-10-20] MEDS ORDERED: 0.9 % Sodium Chloride 500 ML ONE (14:41)
[2020-10-20 15:52] VITALS: BP 158/75
[2020-10-20 17:34] LABS: BUN/Creatinine Ratio 19 (6-26); Blood Urea Nitrogen 12 mg/dL (8-23); Calcium 8.7 mg/dL (8.6-10.3); Carbon Dioxide 29 mEq/L (23-29); Chloride 97 mEq/L (98-107); Glucose 114 mg/dL (70-105); Osmolality,Calculated 273 (280-300); Potassium 3.8 mEq/L (3.5-5.1); Sodium 131 mEq/L (136-145); eGFR For African Americans > 60 (> 60); eGFR For Non-African Americans > 60 (> 60)
== END 2020-10-20 18:00 | disposition home or self-care (01) ==
LOC: INPGRE 14:42 → EMEROOGRE 14:42 → INPGRE 17:00
PROVIDERS: ADMIT Family Medicine; ATTEND Family Medicine

== ENCOUNTER 2021-12-04 18:45 | Inpatient (IN) ==
[2021-12-04] MEDS ORDERED: Bisacodyl 10 MG RECTAL SUPPOSITORY RC PRN (19:15)
[2021-12-04] MEDS ORDERED: Sennosides/Docusate Sodium TABLET PO PRN (19:15)
[2021-12-04] MEDS: Budesonide/Formoterol 160/4.5 1 PUFF INH IH SCH (20:31)
[2021-12-04] MEDS: Pregabalin 75 MG CAPSULE PO SCH (20:44)
[2021-12-04] MEDS: polyethylene glycoL 3350 17 GM POWD.PACK PO SCH (20:44)
[2021-12-05 05:30] LABS: Basophils % 0.2 %; Eosinophils # 0.2 K/mcL (0.0-0.6); Eosinophils % 3.3 %; Hematocrit 21.3 % (35.3-44.9); Hemoglobin 6.9 g/dL (11.5-15.4); Immature Granulocytes % 0.9 % (0-4); Lymphocytes # 1.2 K/mcL (0.6-4.6); Lymphocytes % 21.8 %; Mean Corpuscular HGB Conc 32.4 g/dL (31.6-35.5); Mean Corpuscular Hemoglobin 31.7 pg (28.0-33.3); Mean Corpuscular Volume 97.7 fL (83.0-100.0); Mean Platelet Volume 10.2 fL (9.4-12.4); Monocytes # 0.5 K/mcL (0.0-1.3); Monocytes % 9.8 %; Neutrophils # 3.5 K/mcL (1.6-8.9); Platelet Count 108 K/mcL (140-400); Red Blood Count 2.18 M/mcL (3.82-4.97); Red Cell Distribution Width 14.2 % (11.5-14.5); White Blood Count 5.4 K/mcL (4.3-11.1)
[2021-12-05 05:50] LABS: BUN/Creatinine Ratio 23 (6-26); Blood Urea Nitrogen 12 mg/dL (8-23); Calcium 9.1 mg/dL (8.6-10.3); Carbon Dioxide 35 mEq/L (23-29); Chloride 102 mEq/L (98-107); Glucose 125 mg/dL (70-105); Osmolality,Calculated 287 (280-300); Potassium 4.3 mEq/L (3.5-5.1); Sodium 138 mEq/L (136-145); eGFR For African Americans > 60 (> 60); eGFR For Non-African Americans > 60 (> 60)
[2021-12-05] MEDS: *HR* Enoxaparin 40 MG/0.4 ML SYRINGE SQ SCH (06:16)
[2021-12-05] MEDS ORDERED: 0.9 % Sodium Chloride 250 ML ONE (06:23)
[2021-12-05] MEDS: Pregabalin 75 MG CAPSULE PO SCH ×2 (08:06→21:21)
[2021-12-05] MEDS: polyethylene glycoL 3350 17 GM POWD.PACK PO SCH (08:06)
[2021-12-05] MEDS: Mirabegron [Myrbetriq] 50 MG Tab.Er.24h PO SCH (08:08)
[2021-12-05] MEDS ORDERED: MAGNESIUM CHLORIDE 64 MG PO SCH (09:00)
[2021-12-05] MEDS ORDERED: Aspirin Enteric Coated 325 MG Tablet PO SCH (09:00)
[2021-12-05] MEDS: Budesonide/Formoterol 160/4.5 1 PUFF INH IH SCH ×2 (10:07→20:07)
[2021-12-06] MEDS: *HR* Enoxaparin 40 MG/0.4 ML SYRINGE SQ SCH (05:34)
[2021-12-06] MEDS: *HR* OxyCODONE/APAP 5/325 TABLET PO PRN ×2 (07:53→19:59)
[2021-12-06] MEDS: polyethylene glycoL 3350 17 GM POWD.PACK PO SCH (07:53)
[2021-12-06] MEDS: Pregabalin 75 MG CAPSULE PO SCH ×2 (07:53→20:54)
[2021-12-06] MEDS: Mirabegron [Myrbetriq] 50 MG Tab.Er.24h PO SCH (07:54)
[2021-12-06] MEDS: Budesonide/Formoterol 160/4.5 1 PUFF INH IH SCH ×2 (10:11→19:03)
[2021-12-07 05:09] LABS: Carbon Dioxide 33 mEq/L (23-29); Potassium 4.1 mEq/L (3.5-5.1)
[2021-12-07 05:14] LABS: BUN/Creatinine Ratio 26 (6-26); Blood Urea Nitrogen 14 mg/dL (8-23); Calcium 9.2 mg/dL (8.6-10.3); Chloride 101 mEq/L (98-107); Glucose 112 mg/dL (70-105); Osmolality,Calculated 287 (280-300); Sodium 138 mEq/L (136-145); eGFR For African Americans > 60 (> 60); eGFR For Non-African Americans > 60 (> 60)
[2021-12-07] MEDS: *HR* Enoxaparin 40 MG/0.4 ML SYRINGE SQ SCH (05:14)
[2021-12-07] MEDS: polyethylene glycoL 3350 17 GM POWD.PACK PO SCH (08:34)
[2021-12-07] MEDS: Pregabalin 75 MG CAPSULE PO SCH ×2 (08:34→21:42)
[2021-12-07] MEDS: Mirabegron [Myrbetriq] 50 MG Tab.Er.24h PO SCH (08:37)
[2021-12-07 08:57] LABS: Basophils % 0.6 %; Eosinophils # 0.1 K/mcL (0.0-0.6); Hematocrit 25.3 % (35.3-44.9); Hemoglobin 8.2 g/dL (11.5-15.4); Immature Granulocytes % 1.3 % (0-4); Lymphocytes % 21.8 %; Mean Corpuscular HGB Conc 32.4 g/dL (31.6-35.5); Mean Corpuscular Hemoglobin 31.5 pg (28.0-33.3); Mean Corpuscular Volume 97.3 fL (83.0-100.0); Mean Platelet Volume 10.6 fL (9.4-12.4); Monocytes # 0.4 K/mcL (0.0-1.3); Monocytes % 9.1 %; Platelet Count 125 K/mcL (140-400); Red Cell Distribution Width 15.4 % (11.5-14.5); Segmented Neutrophils % 64.2 %; White Blood Count 4.6 K/mcL (4.3-11.1)
[2021-12-07] MEDS: *HR* OxyCODONE/APAP 5/325 TABLET PO PRN (09:19)
[2021-12-07] MEDS: Budesonide/Formoterol 160/4.5 1 PUFF INH IH SCH ×2 (10:04→20:23)
[2021-12-07 12:09] LABS: Bilirubin,Urine Negative (Negative); Blood,Urine Trace-intact (Negative); Clarity,Urine Cloudy (Clear); Color,Urine Yellow (Yellow); Glucose,Urine (UA) Normal (Normal); Ketones,Urine Negative (Negative); Leukocyte Esterase,Urine Moderate (Negative); Nitrite,Urine Negative (Negative); PH,Urine 6.5 pH Units (5.0-8.0); Protein,Urine Negative (Neg-Trace); Urobilinogen,Urine Normal (Normal)
[2021-12-07 12:16] LABS: Bacteria,Urine Many per hpf (None-Few); RBC,Urine 0-3 per hpf (0-3); Renal Epithelial Cells,Urine Few per hpf (None-Few); Squamous Epithelial Cell,Urine Many per hpf (None-Few); WBC,Urine 30-50 per hpf (0-3)
[2021-12-07] MEDS: cephALEXin 500 MG CAPSULE PO SCH ×2 (16:00→21:42)
[2021-12-08] MEDS: *HR* Enoxaparin 40 MG/0.4 ML SYRINGE SQ SCH (05:37)
[2021-12-08] MEDS: *HR* OxyCODONE/APAP 5/325 TABLET PO PRN ×4 (05:38→21:19)
[2021-12-08] MEDS: Budesonide/Formoterol 160/4.5 1 PUFF INH IH SCH ×2 (07:36→20:30)
[2021-12-08] MEDS: polyethylene glycoL 3350 17 GM POWD.PACK PO SCH (08:18)
[2021-12-08] MEDS: Pregabalin 75 MG CAPSULE PO SCH ×2 (08:18→21:20)
[2021-12-08] MEDS: cephALEXin 500 MG CAPSULE PO SCH ×3 (08:18→21:20)
[2021-12-08] MEDS: Mirabegron [Myrbetriq] 50 MG Tab.Er.24h PO SCH (08:20)
[2021-12-09] MEDS: *HR* OxyCODONE/APAP 5/325 TABLET PO PRN ×2 (06:03→15:51)
[2021-12-09] MEDS: *HR* Enoxaparin 40 MG/0.4 ML SYRINGE SQ SCH (06:04)
[2021-12-09] MEDS: Budesonide/Formoterol 160/4.5 1 PUFF INH IH SCH ×2 (10:12→20:30)
[2021-12-09] MEDS: polyethylene glycoL 3350 17 GM POWD.PACK PO SCH (10:31)
[2021-12-09] MEDS: cephALEXin 500 MG CAPSULE PO SCH ×3 (10:31→20:04)
[2021-12-09] MEDS: Pregabalin 75 MG CAPSULE PO SCH ×2 (10:31→20:03)
[2021-12-09] MEDS: Mirabegron [Myrbetriq] 50 MG Tab.Er.24h PO SCH (10:32)
[2021-12-10] MEDS: *HR* Enoxaparin 40 MG/0.4 ML SYRINGE SQ SCH (04:57)
[2021-12-10 05:15] LABS: Hematocrit 25.4 % (35.3-44.9); Mean Corpuscular HGB Conc 31.5 g/dL (31.6-35.5); Mean Corpuscular Hemoglobin 31.7 pg (28.0-33.3); Mean Corpuscular Volume 100.8 fL (83.0-100.0); Mean Platelet Volume 9.2 fL (9.4-12.4); Platelet Count 131 K/mcL (140-400); Red Blood Count 2.52 M/mcL (3.82-4.97); Red Cell Distribution Width 16.4 % (11.5-14.5); White Blood Count 4.2 K/mcL (4.3-11.1)
[2021-12-10 06:02] LABS: Alanine Aminotransferase 10 Units/L (7-52); Albumin 2.7 g/dL (3.5-5.7); Albumin/Globulin Ratio 1.4 (1.1-2.2); Alkaline Phosphatase 47 Units/L (34-104); Aspartate Amino Transferase 14 Units/L (13-39); BUN/Creatinine Ratio 30 (6-26); Bilirubin,Total 0.9 mg/dL (0.3-1.0); Blood Urea Nitrogen 18 mg/dL (8-23); Calcium 9.3 mg/dL (8.6-10.3); Carbon Dioxide 41 mEq/L (23-29); Chloride 101 mEq/L (98-107); Globulin 1.9 g/dL (2.4-3.5); Glucose 117 mg/dL (70-105); Magnesium 1.6 mg/dL (1.6-2.6); Osmolality,Calculated 291 (280-300); Potassium 4.2 mEq/L (3.5-5.1); Sodium 139 mEq/L (136-145); Total Protein 4.6 g/dL (6.4-8.9); eGFR For African Americans > 60 (> 60); eGFR For Non-African Americans > 60 (> 60)
[2021-12-10] MEDS: cephALEXin 500 MG CAPSULE PO SCH ×3 (08:05→21:00)
[2021-12-10] MEDS: Pregabalin 75 MG CAPSULE PO SCH ×2 (08:05→21:00)
[2021-12-10] MEDS: polyethylene glycoL 3350 17 GM POWD.PACK PO SCH (08:05)
[2021-12-10] MEDS: Mirabegron [Myrbetriq] 50 MG Tab.Er.24h PO SCH (08:06)
[2021-12-10] MEDS: Budesonide/Formoterol 160/4.5 1 PUFF INH IH SCH ×2 (10:08→21:34)
[2021-12-10] MEDS: *HR* OxyCODONE/APAP 5/325 TABLET PO PRN (10:53)
[2021-12-11 05:26] LABS: Hematocrit 26.5 % (35.3-44.9); Hemoglobin 8.3 g/dL (11.5-15.4); Mean Corpuscular HGB Conc 31.3 g/dL (31.6-35.5); Mean Corpuscular Hemoglobin 31.9 pg (28.0-33.3); Mean Corpuscular Volume 101.9 fL (83.0-100.0); Mean Platelet Volume 9.5 fL (9.4-12.4); Platelet Count 140 K/mcL (140-400); Red Cell Distribution Width 16.9 % (11.5-14.5); White Blood Count 5.8 K/mcL (4.3-11.1)
[2021-12-11] MEDS: *HR* Enoxaparin 40 MG/0.4 ML SYRINGE SQ SCH (05:28)
[2021-12-11 06:40] LABS: BUN/Creatinine Ratio 29 (6-26); Blood Urea Nitrogen 15 mg/dL (8-23); Calcium 9.3 mg/dL (8.6-10.3); Carbon Dioxide 36 mEq/L (23-29); Chloride 100 mEq/L (98-107); Glucose 109 mg/dL (70-105); Osmolality,Calculated 285 (280-300); Potassium 3.9 mEq/L (3.5-5.1); Sodium 137 mEq/L (136-145); eGFR For African Americans > 60 (> 60); eGFR For Non-African Americans > 60 (> 60)
[2021-12-11] MEDS: Pregabalin 75 MG CAPSULE PO SCH ×2 (07:35→20:17)
[2021-12-11] MEDS: cephALEXin 500 MG CAPSULE PO SCH ×3 (07:35→20:18)
[2021-12-11] MEDS: *HR* OxyCODONE/APAP 5/325 TABLET PO PRN ×3 (07:36→16:38)
[2021-12-11] MEDS: polyethylene glycoL 3350 17 GM POWD.PACK PO SCH (07:37)
[2021-12-11] MEDS: Mirabegron [Myrbetriq] 50 MG Tab.Er.24h PO SCH (07:37)
[2021-12-11] MEDS: Budesonide/Formoterol 160/4.5 1 PUFF INH IH SCH ×2 (12:13→20:28)
[2021-12-12] MEDS: *HR* Enoxaparin 40 MG/0.4 ML SYRINGE SQ SCH (05:25)
[2021-12-12] MEDS: Budesonide/Formoterol 160/4.5 1 PUFF INH IH SCH ×2 (09:01→21:11)
[2021-12-12] MEDS: cephALEXin 500 MG CAPSULE PO SCH ×3 (09:18→21:04)
[2021-12-12] MEDS: Pregabalin 75 MG CAPSULE PO SCH ×2 (09:18→21:05)
[2021-12-12] MEDS: polyethylene glycoL 3350 17 GM POWD.PACK PO SCH (09:19)
[2021-12-12] MEDS: Mirabegron [Myrbetriq] 50 MG Tab.Er.24h PO SCH (09:20)
[2021-12-12] MEDS: Ipratropium/Albuterol Neb 3 ML IH SCH ×2 (15:31→21:11)
[2021-12-12] MEDS: *HR* OxyCODONE/APAP 5/325 TABLET PO PRN ×2 (15:49→21:04)
[2021-12-12 20:28] LABS: Adenovirus Not Detected (Not Detect); Coronavirus 229E Not Detected (Not Detect); Coronavirus HKU1 Not Detected (Not Detect); Coronavirus NL63 Not Detected (Not Detect); Coronavirus OC43 Not Detected (Not Detect); Human Metapneumovirus Not Detected (Not Detect); Human Rhinovirus/Enterovirus Not Detected (Not Detect); SARS-CoV-2 Not Detected (Not Detect)
[2021-12-12 20:29] LABS: Bordetella Pertussis Not Detected (Not Detect); Chlamydophila pneumoniae Not Detected (Not Detect); Influenza A Subtype 2009 H1 Not Detected (Not Detect); Influenza B Not Detected (Not Detect); Mycoplasma pneumoniae Not Detected (Not Detect); Parainfluenza Virus 1 Not Detected (Not Detect); Parainfluenza Virus 2 Not Detected (Not Detect); Parainfluenza Virus 3 Not Detected (Not Detect); Parainfluenza Virus 4 Not Detected (Not Detect); Respiratory Syncytial Virus Not Detected (Not Detect)
[2021-12-12] MEDS: acetaZOLAMIDE 250 MG TABLET PO SCH (21:04)
[2021-12-13] MEDS: Ipratropium/Albuterol Neb 3 ML IH SCH ×4 (03:58→20:56)
[2021-12-13] MEDS: *HR* Enoxaparin 40 MG/0.4 ML SYRINGE SQ SCH (04:10)
[2021-12-13 05:59] LABS: Calcium 9.5 mg/dL (8.6-10.3); Magnesium 1.8 mg/dL (1.6-2.6); Potassium 3.9 mEq/L (3.5-5.1)
[2021-12-13 06:34] LABS: Hematocrit 26.2 % (35.3-44.9); Hemoglobin 8.3 g/dL (11.5-15.4); Mean Corpuscular HGB Conc 31.7 g/dL (31.6-35.5); Mean Corpuscular Hemoglobin 32.4 pg (28.0-33.3); Mean Corpuscular Volume 102.3 fL (83.0-100.0); Mean Platelet Volume 10.7 fL (9.4-12.4); Platelet Count 118 K/mcL (140-400); Red Blood Count 2.56 M/mcL (3.82-4.97); Red Cell Distribution Width 17.2 % (11.5-14.5); White Blood Count 5.1 K/mcL (4.3-11.1)
[2021-12-13] MEDS: Pregabalin 75 MG CAPSULE PO SCH ×2 (07:36→20:29)
[2021-12-13] MEDS: acetaZOLAMIDE 250 MG TABLET PO SCH ×2 (07:36→20:29)
[2021-12-13] MEDS: *HR* OxyCODONE/APAP 5/325 TABLET PO PRN ×3 (07:36→20:29)
[2021-12-13] MEDS: polyethylene glycoL 3350 17 GM POWD.PACK PO SCH (07:37)
[2021-12-13] MEDS: cephALEXin 500 MG CAPSULE PO SCH ×3 (07:37→20:29)
[2021-12-13] MEDS: Mirabegron [Myrbetriq] 50 MG Tab.Er.24h PO SCH (07:37)
[2021-12-13] MEDS: Budesonide/Formoterol 160/4.5 1 PUFF INH IH SCH ×2 (10:33→20:53)
[2021-12-14] MEDS: Ipratropium/Albuterol Neb 3 ML IH SCH ×3 (03:46→16:49)
[2021-12-14] MEDS: *HR* Enoxaparin 40 MG/0.4 ML SYRINGE SQ SCH (05:35)
[2021-12-14] MEDS: Levothyroxine 25 MCG TABLET PO SCH (05:35)
[2021-12-14] MEDS: Pregabalin 75 MG CAPSULE PO SCH ×2 (08:09→20:13)
[2021-12-14] MEDS: cephALEXin 500 MG CAPSULE PO SCH ×3 (08:09→20:13)
[2021-12-14] MEDS: *HR* OxyCODONE/APAP 5/325 TABLET PO PRN ×3 (08:11→20:13)
[2021-12-14] MEDS: Mirabegron [Myrbetriq] 50 MG Tab.Er.24h PO SCH (08:12)
[2021-12-14] MEDS: polyethylene glycoL 3350 17 GM POWD.PACK PO SCH (08:12)
[2021-12-14] MEDS: acetaZOLAMIDE 250 MG TABLET PO SCH ×2 (08:12→20:14)
[2021-12-14] MEDS: Budesonide/Formoterol 160/4.5 1 PUFF INH IH SCH ×2 (11:29→21:54)
[2021-12-14] MEDS ORDERED: Ipratropium/Albuterol Neb 3 ML IH PRN (16:16)
[2021-12-15] MEDS: *HR* Enoxaparin 40 MG/0.4 ML SYRINGE SQ SCH (04:45)
[2021-12-15] MEDS: Levothyroxine 25 MCG TABLET PO SCH (04:45)
[2021-12-15] MEDS: cephALEXin 500 MG CAPSULE PO SCH ×3 (08:57→21:04)
[2021-12-15] MEDS: acetaZOLAMIDE 250 MG TABLET PO SCH ×2 (08:57→21:04)
[2021-12-15] MEDS: Pregabalin 75 MG CAPSULE PO SCH ×2 (08:57→21:03)
[2021-12-15] MEDS: polyethylene glycoL 3350 17 GM POWD.PACK PO SCH (08:57)
[2021-12-15] MEDS: Mirabegron [Myrbetriq] 50 MG Tab.Er.24h PO SCH (09:03)
[2021-12-15] MEDS: Budesonide/Formoterol 160/4.5 1 PUFF INH IH SCH ×2 (10:10→21:41)
[2021-12-15] MEDS: *HR* OxyCODONE/APAP 5/325 TABLET PO PRN ×2 (15:29→21:04)
[2021-12-16] MEDS: Levothyroxine 25 MCG TABLET PO SCH (05:24)
[2021-12-16] MEDS: *HR* Enoxaparin 40 MG/0.4 ML SYRINGE SQ SCH (05:24)
[2021-12-16] MEDS: cephALEXin 500 MG CAPSULE PO SCH ×3 (08:26→19:53)
[2021-12-16] MEDS: acetaZOLAMIDE 250 MG TABLET PO SCH ×2 (08:26→19:53)
[2021-12-16] MEDS: Pregabalin 75 MG CAPSULE PO SCH ×2 (08:26→19:53)
[2021-12-16] MEDS: polyethylene glycoL 3350 17 GM POWD.PACK PO SCH (08:26)
[2021-12-16] MEDS: Mirabegron [Myrbetriq] 50 MG Tab.Er.24h PO SCH (09:37)
[2021-12-16] MEDS: Budesonide/Formoterol 160/4.5 1 PUFF INH IH SCH ×2 (10:05→22:07)
[2021-12-16] MEDS: *HR* OxyCODONE/APAP 5/325 TABLET PO PRN (19:53)
[2021-12-17 04:50] LABS: Hematocrit 27.9 % (35.3-44.9); Hemoglobin 8.7 g/dL (11.5-15.4); Mean Corpuscular HGB Conc 31.2 g/dL (31.6-35.5); Mean Corpuscular Hemoglobin 32.1 pg (28.0-33.3); Mean Platelet Volume 10.1 fL (9.4-12.4); Red Blood Count 2.71 M/mcL (3.82-4.97); Red Cell Distribution Width 17.7 % (11.5-14.5); White Blood Count 5.2 K/mcL (4.3-11.1)
[2021-12-17] MEDS: *HR* Enoxaparin 40 MG/0.4 ML SYRINGE SQ SCH (04:57)
[2021-12-17] MEDS: Levothyroxine 25 MCG TABLET PO SCH (04:57)
[2021-12-17 04:59] LABS: Platelet Count 178 K/mcL (140-400)
[2021-12-17 05:03] LABS: Calcium 9.1 mg/dL (8.6-10.3); Magnesium 1.7 mg/dL (1.6-2.6)
[2021-12-17] MEDS: Budesonide/Formoterol 160/4.5 1 PUFF INH IH SCH ×2 (08:03→21:15)
[2021-12-17] MEDS: cephALEXin 500 MG CAPSULE PO SCH ×3 (09:16→20:26)
[2021-12-17] MEDS: polyethylene glycoL 3350 17 GM POWD.PACK PO SCH (09:16)
[2021-12-17] MEDS: acetaZOLAMIDE 250 MG TABLET PO SCH ×2 (09:16→20:26)
[2021-12-17] MEDS: Pregabalin 75 MG CAPSULE PO SCH ×2 (09:16→20:25)
[2021-12-17] MEDS: Mirabegron [Myrbetriq] 50 MG Tab.Er.24h PO SCH (09:17)
[2021-12-17] MEDS: *HR* OxyCODONE/APAP 5/325 TABLET PO PRN ×2 (14:03→20:25)
[2021-12-18] MEDS: Levothyroxine 25 MCG TABLET PO SCH (06:22)
[2021-12-18] MEDS: *HR* Enoxaparin 40 MG/0.4 ML SYRINGE SQ SCH (06:22)
[2021-12-18] MEDS: Pregabalin 75 MG CAPSULE PO SCH ×2 (08:04→20:40)
[2021-12-18] MEDS: acetaZOLAMIDE 250 MG TABLET PO SCH ×2 (08:04→20:39)
[2021-12-18] MEDS: cephALEXin 500 MG CAPSULE PO SCH (08:04)
[2021-12-18] MEDS: polyethylene glycoL 3350 17 GM POWD.PACK PO SCH (08:05)
[2021-12-18] MEDS: Budesonide/Formoterol 160/4.5 1 PUFF INH IH SCH ×2 (08:16→20:04)
[2021-12-18] MEDS: *HR* OxyCODONE/APAP 5/325 TABLET PO PRN ×2 (10:55→20:40)
[2021-12-18] MEDS: Mirabegron [Myrbetriq] 50 MG Tab.Er.24h PO SCH (10:57)
[2021-12-19] MEDS: *HR* Enoxaparin 40 MG/0.4 ML SYRINGE SQ SCH (06:06)
[2021-12-19] MEDS: Levothyroxine 25 MCG TABLET PO SCH (06:07)
[2021-12-19] MEDS: polyethylene glycoL 3350 17 GM POWD.PACK PO SCH (08:10)
[2021-12-19] MEDS: acetaZOLAMIDE 250 MG TABLET PO SCH ×2 (08:10→21:00)
[2021-12-19] MEDS: *HR* OxyCODONE/APAP 5/325 TABLET PO PRN ×2 (08:11→16:54)
[2021-12-19] MEDS: Budesonide/Formoterol 160/4.5 1 PUFF INH IH SCH ×2 (08:54→20:16)
[2021-12-19] MEDS: Mirabegron [Myrbetriq] 50 MG Tab.Er.24h PO SCH (16:56)
[2021-12-20] MEDS: *HR* Enoxaparin 40 MG/0.4 ML SYRINGE SQ SCH (05:32)
[2021-12-20] MEDS: Levothyroxine 25 MCG TABLET PO SCH (05:32)
[2021-12-20] MEDS: polyethylene glycoL 3350 17 GM POWD.PACK PO SCH (09:10)
[2021-12-20] MEDS: *HR* OxyCODONE/APAP 5/325 TABLET PO PRN (09:10)
[2021-12-20] MEDS: acetaZOLAMIDE 250 MG TABLET PO SCH ×2 (09:11→21:13)
[2021-12-20] MEDS: Mirabegron [Myrbetriq] 50 MG Tab.Er.24h PO SCH (09:12)
[2021-12-20] MEDS: Budesonide/Formoterol 160/4.5 1 PUFF INH IH SCH ×2 (10:12→21:17)
[2021-12-21] MEDS: *HR* Enoxaparin 40 MG/0.4 ML SYRINGE SQ SCH (05:11)
[2021-12-21] MEDS: Levothyroxine 25 MCG TABLET PO SCH (05:12)
[2021-12-21] MEDS: Mirabegron [Myrbetriq] 50 MG Tab.Er.24h PO SCH (08:14)
[2021-12-21] MEDS: acetaZOLAMIDE 250 MG TABLET PO SCH ×2 (08:14→20:57)
[2021-12-21] MEDS: polyethylene glycoL 3350 17 GM POWD.PACK PO SCH (08:14)
[2021-12-21] MEDS: *HR* OxyCODONE/APAP 5/325 TABLET PO PRN (08:14)
[2021-12-21] MEDS: Budesonide/Formoterol 160/4.5 1 PUFF INH IH SCH ×2 (10:04→19:45)
[2021-12-21 17:46] LABS: Bilirubin,Urine Negative (Negative); Blood,Urine Trace-intact (Negative); Clarity,Urine Cloudy (Clear); Color,Urine Yellow (Yellow); Glucose,Urine (UA) Normal (Normal); Ketones,Urine Negative (Negative); Leukocyte Esterase,Urine Large (Negative); Nitrite,Urine Positive (Negative); PH,Urine 7.5 pH Units (5.0-8.0); Protein,Urine 100 mg/dL (Neg-Trace)
[2021-12-21 17:49] LABS: RBC,Urine 0-3 per hpf (0-3); WBC,Urine TNTC per hpf (0-3)
[2021-12-21 17:50] LABS: Bacteria,Urine Many per hpf (None-Few); Squamous Epithelial Cell,Urine Many per hpf (None-Few)
[2021-12-21 17:51] LABS: Renal Epithelial Cells,Urine Few per hpf (None-Few)
[2021-12-21] MEDS: cephALEXin 500 MG CAPSULE PO SCH (20:57)
[2021-12-22] MEDS: Levothyroxine 25 MCG TABLET PO SCH (05:21)
[2021-12-22] MEDS: *HR* Enoxaparin 40 MG/0.4 ML SYRINGE SQ SCH (05:21)
[2021-12-22] MEDS: polyethylene glycoL 3350 17 GM POWD.PACK PO SCH (08:24)
[2021-12-22] MEDS: Mirabegron [Myrbetriq] 50 MG Tab.Er.24h PO SCH (08:24)
[2021-12-22] MEDS: cephALEXin 500 MG CAPSULE PO SCH ×3 (08:24→21:58)
[2021-12-22] MEDS: acetaZOLAMIDE 250 MG TABLET PO SCH ×2 (08:25→21:58)
[2021-12-22] MEDS: *HR* OxyCODONE/APAP 5/325 TABLET PO PRN ×2 (08:25→21:57)
[2021-12-22] MEDS: Budesonide/Formoterol 160/4.5 1 PUFF INH IH SCH ×2 (09:58→22:04)
[2021-12-23 05:48] LABS: Basophils % 0.4 %; Eosinophils % 0.4 %; Hematocrit 34.5 % (35.3-44.9); Hemoglobin 10.7 g/dL (11.5-15.4); Lymphocytes # 0.7 K/mcL (0.6-4.6); Lymphocytes % 14.1 %; Mean Corpuscular Hemoglobin 31.5 pg (28.0-33.3); Mean Corpuscular Volume 101.5 fL (83.0-100.0); Mean Platelet Volume 10.4 fL (9.4-12.4); Monocytes # 0.2 K/mcL (0.0-1.3); Monocytes % 4.2 %; Neutrophils # 4.2 K/mcL (1.6-8.9); Platelet Count 185 K/mcL (140-400); Red Cell Distribution Width 16.4 % (11.5-14.5); Segmented Neutrophils % 79.9 %; White Blood Count 5.2 K/mcL (4.3-11.1)
[2021-12-23 06:03] LABS: Calcium 9.5 mg/dL (8.6-10.3); Potassium 3.2 mEq/L (3.5-5.1)
[2021-12-23] MEDS: Levothyroxine 25 MCG TABLET PO SCH (06:11)
[2021-12-23] MEDS: *HR* Enoxaparin 40 MG/0.4 ML SYRINGE SQ SCH (06:11)
[2021-12-23] MEDS: acetaZOLAMIDE 250 MG TABLET PO SCH (07:28)
[2021-12-23] MEDS: polyethylene glycoL 3350 17 GM POWD.PACK PO SCH (07:28)
[2021-12-23] MEDS: *HR* OxyCODONE/APAP 5/325 TABLET PO PRN ×2 (07:28→21:35)
[2021-12-23] MEDS: cephALEXin 500 MG CAPSULE PO SCH (07:28)
[2021-12-23] MEDS: Budesonide/Formoterol 160/4.5 1 PUFF INH IH SCH ×2 (10:17→20:42)
[2021-12-23] MEDS: cefTRIAXone 1,000 MG in 0.9 % Sodium Chloride 10 ML IVP SCH (11:01)
[2021-12-23] MEDS: Mirabegron [Myrbetriq] 50 MG Tab.Er.24h PO SCH (11:06)
[2021-12-24] MEDS: *HR* Enoxaparin 40 MG/0.4 ML SYRINGE SQ SCH (06:45)
[2021-12-24] MEDS: Levothyroxine 25 MCG TABLET PO SCH (06:45)
[2021-12-24] MEDS: *HR* OxyCODONE/APAP 5/325 TABLET PO PRN (09:14)
[2021-12-24] MEDS: cefTRIAXone 1,000 MG in 0.9 % Sodium Chloride 10 ML IVP SCH (09:14)
[2021-12-24] MEDS: Budesonide/Formoterol 160/4.5 1 PUFF INH IH SCH ×2 (11:05→21:53)
[2021-12-24] MEDS: polyethylene glycoL 3350 17 GM POWD.PACK PO SCH (11:25)
[2021-12-24] MEDS: Mirabegron [Myrbetriq] 50 MG Tab.Er.24h PO SCH (11:26)
[2021-12-24] MEDS: Cefepime HCl 1,000 MG in 0.9 % Sodium Chloride 10 ML IVP SCH (17:39)
[2021-12-24] MEDS: Mirtazapine 15 MG TABLET PO SCH (20:27)
[2021-12-25] MEDS: Cefepime HCl 1,000 MG in 0.9 % Sodium Chloride 10 ML IVP SCH ×2 (04:51→17:52)
[2021-12-25] MEDS: *HR* Enoxaparin 40 MG/0.4 ML SYRINGE SQ SCH (04:52)
[2021-12-25] MEDS: Levothyroxine 25 MCG TABLET PO SCH (04:52)
[2021-12-25 05:03] LABS: Basophils % 0.4 %; Eosinophils # 0.1 K/mcL (0.0-0.6); Hematocrit 34.2 % (35.3-44.9); Immature Granulocytes % 0.9 % (0-4); Lymphocytes # 0.9 K/mcL (0.6-4.6); Lymphocytes % 19.4 %; Mean Corpuscular HGB Conc 32.2 g/dL (31.6-35.5); Mean Corpuscular Hemoglobin 32.3 pg (28.0-33.3); Mean Corpuscular Volume 100.3 fL (83.0-100.0); Mean Platelet Volume 9.6 fL (9.4-12.4); Monocytes # 0.3 K/mcL (0.0-1.3); Monocytes % 6.5 %; Neutrophils # 3.2 K/mcL (1.6-8.9); Platelet Count 145 K/mcL (140-400); Red Blood Count 3.41 M/mcL (3.82-4.97); Red Cell Distribution Width 16.3 % (11.5-14.5); Segmented Neutrophils % 70.8 %; White Blood Count 4.5 K/mcL (4.3-11.1)
[2021-12-25 05:22] LABS: Albumin 3.2 g/dL (3.5-5.7); Bilirubin,Total 0.6 mg/dL (0.3-1.0); Calcium 9.2 mg/dL (8.6-10.3); Globulin 1.6 g/dL (2.4-3.5); Magnesium 1.6 mg/dL (1.6-2.6); Potassium 3.5 mEq/L (3.5-5.1); Total Protein 4.8 g/dL (6.4-8.9)
[2021-12-25] MEDS: polyethylene glycoL 3350 17 GM POWD.PACK PO SCH (09:08)
[2021-12-25] MEDS: Mirabegron [Myrbetriq] 50 MG Tab.Er.24h PO SCH (09:08)
[2021-12-25] MEDS: Budesonide/Formoterol 160/4.5 1 PUFF INH IH SCH ×2 (10:13→21:55)
[2021-12-25] MEDS: Mirtazapine 15 MG TABLET PO SCH (21:29)
[2021-12-25] MEDS: *HR* OxyCODONE/APAP 5/325 TABLET PO PRN (21:30)
[2021-12-26] MEDS: *HR* Enoxaparin 40 MG/0.4 ML SYRINGE SQ SCH (05:53)
[2021-12-26] MEDS: Cefepime HCl 1,000 MG in 0.9 % Sodium Chloride 10 ML IVP SCH ×2 (05:53→17:22)
[2021-12-26] MEDS: Levothyroxine 25 MCG TABLET PO SCH (05:54)
[2021-12-26] MEDS: Budesonide/Formoterol 160/4.5 1 PUFF INH IH SCH ×2 (08:06→20:00)
[2021-12-26] MEDS: Mirabegron [Myrbetriq] 50 MG Tab.Er.24h PO SCH (08:53)
[2021-12-26] MEDS: polyethylene glycoL 3350 17 GM POWD.PACK PO SCH (08:57)
[2021-12-26] MEDS: Mirtazapine 15 MG TABLET PO SCH (20:49)
[2021-12-26] MEDS: *HR* OxyCODONE/APAP 5/325 TABLET PO PRN (20:58)
[2021-12-27] MEDS: Levothyroxine 25 MCG TABLET PO SCH (06:01)
[2021-12-27] MEDS: Cefepime HCl 1,000 MG in 0.9 % Sodium Chloride 10 ML IVP SCH ×2 (06:01→17:53)
[2021-12-27] MEDS: *HR* Enoxaparin 40 MG/0.4 ML SYRINGE SQ SCH (06:01)
[2021-12-27] MEDS: Budesonide/Formoterol 160/4.5 1 PUFF INH IH SCH ×2 (07:35→22:54)
[2021-12-27] MEDS: polyethylene glycoL 3350 17 GM POWD.PACK PO SCH (08:23)
[2021-12-27] MEDS: Mirabegron [Myrbetriq] 50 MG Tab.Er.24h PO SCH (08:23)
[2021-12-27] MEDS: Mirtazapine 15 MG TABLET PO SCH (19:43)
[2021-12-27 22:55] VITALS: O2SAT 96
[2021-12-28] MEDS: Cefepime HCl 1,000 MG in 0.9 % Sodium Chloride 10 ML IVP SCH (05:05)
[2021-12-28] MEDS: *HR* Enoxaparin 40 MG/0.4 ML SYRINGE SQ SCH (05:06)
[2021-12-28] MEDS: Levothyroxine 25 MCG TABLET PO SCH (05:06)
[2021-12-28 07:01] VITALS: BP 163/70; PULSE 72; TEMP 98.1
[2021-12-28] MEDS: Budesonide/Formoterol 160/4.5 1 PUFF INH IH SCH (07:51)
[2021-12-28] MEDS: Mirabegron [Myrbetriq] 50 MG Tab.Er.24h PO SCH (08:07)
[2021-12-28 08:10] VITALS: RESP 16
[2021-12-28] MEDS: polyethylene glycoL 3350 17 GM POWD.PACK PO SCH (08:22)
== END 2021-12-28 11:30 | disposition home health service (06) | DRG 560 ==
LOC: INPGRE 18:46
PROVIDERS: ADMIT Family Medicine; ATTEND Family Medicine

== ENCOUNTER 2022-01-05 13:20 | Inpatient (IN) ==
[2022-01-05] MEDS ORDERED: *HR* OxyCODONE/APAP 5/325 TABLET PO PRN (15:14)
[2022-01-05] MEDS ORDERED: polyethylene glycoL 3350 17 GM POWD.PACK PO PRN (15:14)
[2022-01-05] MEDS: Budesonide/Formoterol 160/4.5 1 PUFF INH IH SCH (22:30)
[2022-01-05] MEDS: Mirtazapine 15 MG TABLET PO SCH (23:11)
[2022-01-05] MEDS: Pregabalin 75 MG CAPSULE PO SCH (23:12)
[2022-01-06 05:17] LABS: Basophils % 0.3 %; Eosinophils % 0.3 %; Hematocrit 34.4 % (35.3-44.9); Hemoglobin 10.9 g/dL (11.5-15.4); Immature Granulocytes % 3.9 % (0-4); Lymphocytes # 0.8 K/mcL (0.6-4.6); Lymphocytes % 10.8 %; Mean Corpuscular HGB Conc 31.7 g/dL (31.6-35.5); Mean Corpuscular Hemoglobin 31.1 pg (28.0-33.3); Mean Platelet Volume 10.2 fL (9.4-12.4); Monocytes # 0.4 K/mcL (0.0-1.3); Monocytes % 5.6 %; Neutrophils # 5.5 K/mcL (1.6-8.9); Platelet Count 149 K/mcL (140-400); Red Blood Count 3.51 M/mcL (3.82-4.97); Red Cell Distribution Width 14.8 % (11.5-14.5); Segmented Neutrophils % 79.1 %
[2022-01-06 05:31] LABS: BUN/Creatinine Ratio 33 (6-26); Blood Urea Nitrogen 15 mg/dL (8-23); Calcium 8.9 mg/dL (8.6-10.3); Carbon Dioxide 32 mEq/L (23-29); Chloride 104 mEq/L (98-107); Glucose 141 mg/dL (70-105); Osmolality,Calculated 297 (280-300); Potassium 3.7 mEq/L (3.5-5.1); Sodium 142 mEq/L (136-145)
[2022-01-06] MEDS: Levothyroxine 25 MCG TABLET PO SCH (06:08)
[2022-01-06] MEDS ORDERED: MAGNESIUM CHLORIDE 71.5 MG PO SCH (09:00)
[2022-01-06] MEDS: Aspirin Enteric Coated 325 MG Tablet PO SCH (09:05)
[2022-01-06] MEDS: Pregabalin 75 MG CAPSULE PO SCH ×2 (09:05→21:10)
[2022-01-06] MEDS: Mirabegron [Myrbetriq] 50 MG Tab.Er.24h PO SCH (09:06)
[2022-01-06] MEDS: Budesonide/Formoterol 160/4.5 1 PUFF INH IH SCH ×2 (10:04→21:28)
[2022-01-06] MEDS: Mirtazapine 15 MG TABLET PO SCH (21:11)
[2022-01-07] MEDS: Levothyroxine 25 MCG TABLET PO SCH (05:51)
[2022-01-07] MEDS: Aspirin Enteric Coated 325 MG Tablet PO SCH (08:14)
[2022-01-07] MEDS: Pregabalin 75 MG CAPSULE PO SCH ×2 (08:14→20:26)
[2022-01-07] MEDS: Mirabegron [Myrbetriq] 50 MG Tab.Er.24h PO SCH (08:15)
[2022-01-07] MEDS: Budesonide/Formoterol 160/4.5 1 PUFF INH IH SCH ×2 (10:08→21:30)
[2022-01-07] MEDS: Mirtazapine 15 MG TABLET PO SCH (20:25)
[2022-01-07] MEDS: Nystatin SUSP 5 ML UD.LIQ PO SCH (20:27)
[2022-01-08] MEDS: Levothyroxine 25 MCG TABLET PO SCH (04:41)
[2022-01-08] MEDS: Aspirin Enteric Coated 325 MG Tablet PO SCH (08:50)
[2022-01-08] MEDS: Nystatin SUSP 5 ML UD.LIQ PO SCH ×4 (08:51→20:31)
[2022-01-08] MEDS: Mirabegron [Myrbetriq] 50 MG Tab.Er.24h PO SCH (08:51)
[2022-01-08] MEDS: Pregabalin 75 MG CAPSULE PO SCH ×2 (08:51→20:32)
[2022-01-08] MEDS: Budesonide/Formoterol 160/4.5 1 PUFF INH IH SCH ×2 (10:06→21:49)
[2022-01-08] MEDS: Mirtazapine 15 MG TABLET PO SCH (20:33)
[2022-01-09] MEDS: Levothyroxine 25 MCG TABLET PO SCH (06:36)
[2022-01-09 07:06] VITALS: BP 142/74; TEMP 98.1
[2022-01-09] MEDS: Aspirin Enteric Coated 325 MG Tablet PO SCH (07:40)
[2022-01-09] MEDS: Mirabegron [Myrbetriq] 50 MG Tab.Er.24h PO SCH (07:41)
[2022-01-09] MEDS: Pregabalin 75 MG CAPSULE PO SCH (07:41)
[2022-01-09] MEDS: Nystatin SUSP 5 ML UD.LIQ PO SCH (07:41)
[2022-01-09 09:19] VITALS: PULSE 71
[2022-01-09] MEDS: Budesonide/Formoterol 160/4.5 1 PUFF INH IH SCH (09:46)
[2022-01-09 09:50] VITALS: RESP 16; O2SAT 96
== END 2022-01-09 14:48 | disposition home health service (06) | DRG 193 ==
LOC: INPGRE 20:23
PROVIDERS: ADMIT Family Medicine; ATTEND Family Medicine

== ENCOUNTER 2022-01-17 14:08 | Inpatient (IN) ==
[2022-01-17] MEDS ORDERED: 0.9 % Sodium Chloride 500 ML IVC ONE ×2 (14:10→15:13)
[2022-01-17] MEDS ORDERED: Ondansetron 4 MG/2 ML VIAL IVP ONE (14:10)
[2022-01-17] MEDS ORDERED: Morphine Sulfate 2 MG/ML SYRINGE IVP ONE (14:10)
[2022-01-17 14:40] LABS: Basophils % 0.4 %; Eosinophils # 0.1 K/mcL (0.0-0.6); Eosinophils % 1.2 %; Hematocrit 34.7 % (35.3-44.9); Hemoglobin 10.9 g/dL (11.5-15.4); Immature Granulocytes % 0.6 % (0-4); Lymphocytes # 0.9 K/mcL (0.6-4.6); Lymphocytes % 18.3 %; Mean Corpuscular HGB Conc 31.4 g/dL (31.6-35.5); Mean Corpuscular Hemoglobin 31.1 pg (28.0-33.3); Mean Corpuscular Volume 99.1 fL (83.0-100.0); Mean Platelet Volume 10.2 fL (9.4-12.4); Monocytes # 0.2 K/mcL (0.0-1.3); Monocytes % 4.5 %; Neutrophils # 3.8 K/mcL (1.6-8.9); Platelet Count 133 K/mcL (140-400); Red Cell Distribution Width 15.5 % (11.5-14.5); White Blood Count 5.1 K/mcL (4.3-11.1)
[2022-01-17 14:45] LABS: INR 1.6; Prothrombin Time 18.1 Seconds (9.4-12.1)
[2022-01-17 14:57] LABS: Calcium 9.3 mg/dL (8.6-10.3); Potassium 4.5 mEq/L (3.5-5.1)
[2022-01-17] MEDS ORDERED: *HR* Propofol 500 MG/50 ML BOTTLE IVP ONE (15:30)
[2022-01-17] MEDS ORDERED: Ketamine *HR* 500 MG/10 ML MDV IVP ONE (15:30)
[2022-01-17] MEDS ORDERED: Morphine Sulfate 2 MG/ML SYRINGE IVP PRN ×2 (18:51→20:07)
[2022-01-17] MEDS ORDERED: Naloxone 0.4 MG/ML INJ IVP PRN (20:07)
[2022-01-17] MEDS ORDERED: *HR* HYDROcodone/Acet 5/325 mg TABLET PO PRN (20:07)
[2022-01-17] MEDS ORDERED: Acetaminophen 325 MG TABLET PO PRN (20:07)
[2022-01-17] MEDS ORDERED: Melatonin 3 MG TABLET PO PRN (20:07)
[2022-01-17] MEDS ORDERED: *HR* OxyCODONE Immed Rel 5 MG TABLET PO PRN (20:07)
[2022-01-17] MEDS ORDERED: Ondansetron ODT 4 MG TAB.RAPDIS SL PRN (20:07)
[2022-01-17] MEDS ORDERED: 0.9 % Sodium Chloride 1,000 ML IVC SCH (20:07)
[2022-01-17] MEDS ORDERED: Ondansetron 4 MG/2 ML VIAL IVP PRN (20:07)
[2022-01-17] MEDS ORDERED: Mirtazapine 15 MG TABLET PO SCH (21:00)
[2022-01-17] MEDS: Budesonide/Formoterol 160/4.5 1 PUFF INH IH SCH (21:34)
[2022-01-17] MEDS: Pregabalin 75 MG CAPSULE PO SCH (21:41)
[2022-01-17] MEDS: Apixaban 5 MG TABLET PO SCH (21:42)
[2022-01-18] MEDS ORDERED: Levothyroxine 25 MCG TABLET PO SCH (06:00)
[2022-01-18] MEDS ORDERED: DilTIAZem CD (24hr) 180 MG CAP.ER.24H PO SCH (09:00)
[2022-01-18] MEDS ORDERED: Aspirin Enteric Coated 325 MG Tablet PO SCH (09:00)
[2022-01-18] MEDS ORDERED: Patient Taking Own Medication 1 EACH PO SCH ×2 (09:00)
[2022-01-18] MEDS: Pregabalin 75 MG CAPSULE PO SCH (09:42)
[2022-01-18] MEDS: Apixaban 5 MG TABLET PO SCH (09:45)
[2022-01-18] MEDS: Budesonide/Formoterol 160/4.5 1 PUFF INH IH SCH (10:12)
[2022-01-18 13:52] VITALS: BP 113/67; PULSE 78; RESP 18; TEMP 100.1; O2SAT 96
[2022-01-18] MEDS ORDERED: *HR* OxyCODONE Immed Rel 5 MG TABLET PO PRN (13:59)
[2022-01-19] MEDS ORDERED: levoFLOXacin 750 MG TABLET PO ONE ×2 (06:00)
== END 2022-01-18 16:25 | disposition short-term general hospital (02) | DRG 562 ==
LOC: EMEROOGRE 14:08 → INPGRE 14:08
PROVIDERS: ADMIT Internal Medicine; ATTEND Internal Medicine